=== PATIENT | female | born 1970 | race Caucasian/White ===

== ENCOUNTER 2021-09-21 09:31 | Day surgery (SDC) | payer OTHER ==
[2021-09-21] MEDS ORDERED: Ringers Lactate 1,000 ML IV ONE (10:42)
[2021-09-21 10:50] LABS: Hematocrit 38.1 % (36.0-45.0); Lymphocytes % 24.1 % (15.3-44.8); MPV 7.2 fL (7.6-11.3); RBC Red Blood Cell Count 4.18 M/uL (3.86-4.86)
[2021-09-21] MEDS ORDERED: propofoL 200 MG/20 ML VIAL IV ONE (11:03)
[2021-09-21] MEDS ORDERED: FENTANYL CITR 100 MCG/2 ML ONE (11:04)
[2021-09-21] MEDS ORDERED: MIDAZOLAM HCL 2 MG/2 ML INJ ONE (11:05)
[2021-09-21] MEDS ORDERED: ONDANSETRON 4 MG/2 ML VIAL ONE (11:05)
[2021-09-21] MEDS ORDERED: LIDOCAINE 1% MPF 2 ML AMPULE ONE (11:05)
--- NOTE | 2021-09-21 11:24 | RAD REPORT ---
EXAM DESCRIPTION: RAD - Chest Pa And Lat (2 Views) - 09/21/2021 10:42 am CLINICAL HISTORY: PREPROCEDURE SCREENING COMPARISON: Portable chest November 2013 TECHNIQUE: Frontal and lateral views of the chest were obtained. FINDINGS: The lungs are clear of a focal mass or consolidation. Interstitial markings are prominent but believed be baseline and matching the 2014 study. No failure or volume overload. Heart size is normal and central vasculature is within normal limits. No pleural effusion or pneu mothorax seen. No acute bony finding noted. No aortic abnormality. No significant change from comp arison study. IMPRESSION: No acute cardiopulmonary process.
[2021-09-21 11:49] LABS: Specific Gravity 1.025 (1.005-1.030)
[2021-09-21] MEDS: CEFAZOLIN SODIUM 1 GM/VIAL ONE ×2 (11:50→12:08)
[2021-09-21] MEDS ORDERED: KETOROLAC 30 MG/ML INJ ONE (12:30)
--- NOTE | 2021-09-21 12:35 | P.BOP ---
Preoperative diagnosis: infected posterior neck subQ mass Postoperative diagnosis: same Primary procedure: Excisional biopsy of infected posterior neck subQ mass 4x4cm Estimated blood loss: <10cc Specimen: mass Findings: mass and pus Anesthesia: General Complications: None Drain(s): Other (/" iodoform) Transferred to: Recovery Room Condition: Good
[2021-09-21 13:06] VITALS: O2SAT 100
[2021-09-21 13:55] VITALS: BP 117/62; TEMP 97.3
--- NOTE | 2021-09-22 18:16 | EKG ---
Test Date: 2021-09-21 Test Time: 09:24:23 Strategy Director: DANIELLE MEASUREMENT RESULTS: Intervals: Rate: 91 TN: 140 QRSD: 88 QT: 368 QTc: 452 [place]: P: 71 TN: 140 QRS: 75 T: 54 INTERPRETIVE STATEMENTS: Normal sinus rhythm RSR' or QR pattern in V1 suggests right ventricular conduction delay Borderline ECG No previous ECG available for comparison Electronically Signed On 09-22-21 18:15:24 CDT by Aureliano Matias
== END 2021-09-21 13:52 | disposition home or self-care (01) ==
LOC: OR 09:31
PROVIDERS: ATTEND Surgery
PROC: 0JB50ZZ Excision of Left Neck Subcutaneous Tissue and Fascia, Open Approach (ICD-10-PCS; principal; 2021-09-21 11:30)
DX: L72.0 Epidermal cyst (principal); Z20.822 Contact with and (suspected) exposure to COVID-19; I10 Essential (primary) hypertension; E78.00 Pure hypercholesterolemia, unspecified; I51.9 Heart disease, unspecified
CPT/HCPCS: 93005; 87070; 85025; 80048; 36415; 87205; 81025; 88304; 87075; 71046; 11424; U0003; J2704; J2250; J3010; J7120; J2405; J0690

== ENCOUNTER 2023-06-26 05:07 | Observation (INO) | payer OTHER, SELFPAY ==
[2023-06-26 05:36] LABS: Hematocrit 41.5 % (36.0-45.0); MCV 91.6 fL (80-100); MPV 7.6 fL (7.6-11.3); Platelets 199 thou/uL (152-406); RBC Red Blood Cell Count 4.53 M/uL (3.86-4.86)
[2023-06-26] MEDS ORDERED: ASPIRIN 81 MG CHEWABLE TABLET ONE ×2 (05:36→05:37)
[2023-06-26 05:47] LABS: Protime INR 1.09
[2023-06-26 06:27] LABS: ALT/SGPT 24 U/L (13-56); Alkaline Phosphatase 63 U/L (45-117); BUN Blood Urea Nitrogen 13 mg/dL (7-18); Bicarbonate 26 mEq/L (21-32); Bilirubin Direct 0.1 mg/dL (0-0.2); Bilirubin Indirect, Calculated 0.7 mg/dL (0.2-0.8); Bilirubin Total 0.8 mg/dL (0.2-1.0); Glomerular Filtration Rate 69 ml/min (=/>90); Glucose Level 106 mg/dL (74-106); NT PRO-BNP 69 pg/mL (<125); Potassium 3.8 mEq/L (3.5-5.1); Sodium Level 138 mEq/L (136-145)
[2023-06-26 06:28] LABS: SARS-CoV-2 Antigen Rapid Res Negative (Negative)
[2023-06-26 06:28] LABS: AST/SGOT 19 U/L (15-37); Magnesium 2.2 mg/dL (1.6-2.4); Troponin High Sensitivity < 3.0 pg/mL (<58.9)
[2023-06-26] MEDS ORDERED: METOPROLOL XL 50 MG TAB PO ONE (07:31)
--- NOTE | 2023-06-26 07:52 | EDPHYS ---
Physician Documentation [facility] Name: Courtney Carreon Age: 53 yrs Sex: Female : 1970 Arrival Date: 06/26/2023 Time: 05:07 Bed 5 Private MD: ED Physician Irvin Kaye HPI: 06/26 05:12 This 53 yrs old Female presents to ER via Unassigned with complaints of Chest sp4 Pain. 06:03 3-year-old female presents with acute onset midsternal stabbing chest pain on awakening sp4 at 4 AM. Patient states pain radiates into the back. Patient denies shortness of breath. Tachycardic on arrival at 110. Denies fever, vomiting, reported associated nausea. 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 - Social history:: Smoking status: Patient denies any tobacco usage or history of. Patient uses alcohol, only on a social basis. Patient/guardian denies using street drugs. - Family history:: not pertinent. ROS: 06:03 Constitutional: Negative for fever, chills, and weight loss, Eyes: Negative for injury, sp4 pain, redness, and discharge, Cardiovascular: Positive for midsternal stabbing chest pain 06:03 All other systems are negative, Exam: 06:03 Constitutional: This is a well developed, well nourished patient who is awake, alert, sp4 and in no acute distress. Head/Face: Normocephalic, atraumatic. Eyes: Pupils equal round and reactive to light, extra-ocular motions intact. Lids and lashes normal. Conjunctiva and sclera are not injected. Cornea within normal limits. Periorbital areas with no swelling, redness, or edema. ENT: Nares patent. No nasal discharge, no septal abnormalities noted. Tympanic membranes are normal and external auditory canals are clear. Oropharynx with no redness, swelling, or masses, exudates, or evidence of obstruction, uvula midline. Mucous membranes moist. Neck: Trachea midline, no thyromegaly or masses palpated, and no cervical lymphadenopathy. Supple, full range of motion without nuchal rigidity, or vertebral point tenderness. Chest/axilla: Normal chest wall appearance and motion. Nontender with no deformity. No lesions are appreciated. Cardiovascular: Regular rate and rhythm with a normal S1 and S2. No gallops, murmurs, or rubs. Normal PMI, no JVD. No pulse deficits. Respiratory: Lungs have equal breath sounds bilaterally, clear to auscultation and percussion. No rales, rhonchi or wheezes noted. No increased work of breathing, no retractions or nasal flaring. Abdomen/GI: Soft, non-tender, with normal bowel sounds. No distension or tympany. No guarding or rebound. No evidence of tenderness throughout. Back: No spinal tenderness. No costovertebral tenderness. There is sacral decubitus ulcer that is covered by the wound VAC. Skin: Warm, dry with normal turgor. Normal color with no rashes, no lesions, and no evidence of cellulitis. MS/ Extremity: Pulses equal, no cyanosis. Neurovascular intact. Full, normal range of motion. Neuro: Awake and alert, GCS 15, oriented to person, place, time, and situation. Cranial nerves II-XII grossly intact. Motor strength 5/5 in all extremities. Sensory grossly intact. Psych: Awake, alert, with orientation to person, place and time. Behavior, mood, and affect are within normal limits 06:03 ECG was reviewed by the Attending Physician. EKG at 0 522 sinus tachycardia at the sp4 rate of 110 otherwise normal Vital Signs: 05:10 BP 167 / 103; Pulse 117; Resp 16; Pulse Ox 100% on R/A; Weight 83.91 kg (R); Height 5 km8 ft. 10 in. (R); Pain 6/10; 06:00 BP 143 / 78; Pulse 76; Resp 16; Pulse Ox 100% on R/A; km8 06:30 BP 149 / 84; Pulse 80; Resp 16; Pulse Ox 100% on R/A; km8 07:36 BP 165 / 91; Pulse 105; Resp 18; Temp 98; Pulse Ox 100% on R/A; mb9 08:10 BP 152 / 79; Pulse 101; Resp 16; Pulse Ox 100% on R/A; mb9 09:16 BP 145 / 66; Pulse 82; Resp 16; Pulse Ox 100% on R/A; mb9 09:53 BP 130 / 71; Pulse 83; Resp 16; Pulse Ox 100% ; mb9 05:10 Body Mass Index 26.54 (83.91 kg, 177.8 cm) km8 05:10 Pain Scale: Adult km8 [place] Coma Score: 05:10 Eye Response: spontaneous(4). Motor Response: obeys commands(6). Verbal Response: km8 oriented(5). Total: 15. MDM: 05:13 Patient medically screened. sp4 07:06 HEART Score: History: Slightly Suspicious (0), ECG: Normal (0), Age: > 45 and < 65 sp4 years (1), Risk Factors: No Risk Factors Known (0), Troponin: < or = 1 x Normal Limit (0). The patient was given aspirin in the Emergency Department. Data reviewed: vital signs, nurses notes, old medical records, lab test result(s), EKG, radiologic studies. Transition of care: After a detail discussion of the patient's case, care is transferred to Irvin Kaye MD. 06/26 05:12 Order name: Basic Metabolic Panel; Complete Time: 07:06/26 05:12 Order name: CBC with Diff; Complete Time: :06/26 05:12 Order name: D-Dimer; Complete Time: 06:06/26 05:12 Order name: LFT's; Complete Time: 07:06/26 05:12 Order name: Magnesium; Complete Time: 07:06/26 05:12 Order name: NT PRO-BNP; Complete Time: 07:06/26 05:12 Order name: PT-INR; Complete Time: :06/26 05:12 Order name: Troponin HS; Complete Time: 07:4 06/26 05:26 Order name: SARS RAPID; Complete Time: 07:06 4 06/26 05:26 Order name: Influenza Screen (a \T\ B); Complete Time: 07:4 06/26 10:01 Order name: T4 Free; Complete Time: 21:02 EDMS 06/26 10:01 Order name: Thyroid Stimulating Hormone; Complete Time: 21:02 EDMS 06/26 10:01 Order name: Basic Metabolic Panel EDMS 06/26 10:01 Order name: Basic Metabolic Panel EDMS 06/26 10:01 Order name: Basic Metabolic Panel EDMS 06/26 10:01 Order name: Basic Metabolic Panel EDMS 06/26 10:01 Order name: Basic Metabolic Panel EDMS 06/26 10:01 Order name: Basic Metabolic Panel EDMS 06/26 10:01 Order name: CBC with Automated Diff EDMS 06/26 10:01 Order name: CBC with Automated Diff EDMS 06/26 10:01 Order name: CBC with Automated Diff EDMS 06/26 10:02 Order name: CBC with Automated Diff EDMS 06/26 10:02 Order name: CBC with Automated Diff EDMS 06/26 10:02 Order name: CBC with Automated Diff EDMS 06/26 10:02 Order name: Lipid Profile EDMS 06/26 10:02 Order name: Lipid Profile; Complete Time: 21:02 EDMS 06/26 10:02 Order name: Magnesium EDMS 06/26 10:02 Order name: Magnesium EDMS 06/26 10:02 Order name: Magnesium EDMS 06/26 10:02 Order name: Magnesium EDMS 06/26 10:02 Order name: Magnesium EDMS 06/26 10:02 Order name: Magnesium EDMS 06/26 10:02 Order name: Phosphorus EDMS 06/26 10:02 Order name: Phosphorus EDMS 06/26 10:02 Order name: Phosphorus EDMS 06/26 10:02 Order name: Phosphorus EDMS 06/26 10:02 Order name: Phosphorus EDMS 06/26 10:02 Order name: Phosphorus EDMS 06/26 10:02 Order name: Troponin High Sensitivity EDMS 06/26 10:02 Order name: Troponin High Sensitivity; Complete Time: 21:02 EDMS 06/26 10:02 Order name: Troponin High Sensitivity EDMS 06/26 10:02 Order name: Troponin High Sensitivity; Complete Time: 21:02 EDMS 06/26 05:12 Order name: XRAY Chest (1 view) sp4 06/26 07:28 Order name: CT Aorta for Dissection; Complete Time: 21:02 sam 06/26 10:01 Order name: Echo with Doppler EDMS 06/26 05:12 Order name: EKG; Complete Time: 05:13 sp4 06/26 10:01 Order name: CONS Physician Consult EDAR 06/26 10:01 Order name: EKG Electrocardiogram EDAR 06/26 10:01 Order name: EKG Electrocardiogram EDAR 06/26 05:12 Order name: Cardiac monitoring; Complete Time: 05: sp4 06/26 05:12 Order name: EKG - Nurse/Tech; Complete Time: sp4 06/26 05:12 Order name: IV Saline Lock; Complete Time: : sp4 06/26 05:12 Order name: Labs collected and sent; Complete Time: : sp4 06/26 05:12 Order name: O2 Per Protocol; Complete Time: sp4 06/26 05:12 Order name: O2 Sat Monitoring; Complete Time: : sp4 EC:03 Rate is 110 beats/min. Rhythm is regular, Sinus tachycardia. QRS [place] is Normal. NC sp4 interval is normal. QRS interval is normal. QT interval is normal. No Q waves. T waves are Normal. Clinical impression: No evidence of ischemia. Interpreted by me. Reviewed by me. Administered Medications: 05:57 Drug: Aspirin PO Chewable Tablet 324 mg PO once; 81 mg tablets x 4 Route: PO; km8 06:29 Follow up: Response: No adverse reaction km8 07:36 Drug: Metoprolol PO 50 mg PO once Route: PO; mb9 07:52 Follow up: Response: No adverse reaction mb9 08:38 Drug: Enoxaparin Sub-Q 1 mg/kg Sub-Q once; give if ct dissection negative Route: Sub-Q; mb9 Site: left lower abdomen; 09:24 Follow up: Response: No adverse reaction mb9 08:38 Drug: Norvasc PO 5 mg PO once Route: PO; mb9 09:24 Follow up: Response: No adverse reaction mb9 Disposition Summary: 06/26/23 07:52 Hospitalization Ordered Notes: Hospitalization Status: Observation sam Provider: Casey Christianson cha Location: Telemetry/MedSurg (observation) sam Condition: Stable sam Problem: new sam Symptoms: have improved sam Bed/Room Type: Standard sam Room Assignment: 232(06/26/23 10:47) mb9 Diagnosis - Chest pain, unspecified sam - Essential (primary) hypertension sam Forms: - Medication Reconciliation Form sam - SBAR form sam - Leadership Thank You Letter sam Signatures: Dispatcher [employer] Irvin Garcia MD MD cha Botello, Elizabeth eb Breneman, Donna Messina RN RN mb9 Jlaen Perrin MD MD sp4 Supriya Phipps RN RN km8 Corrections: (The following items were deleted from the chart) 10:24 07:52 sam dean 10:47 10:24 [facility] [place] jermaine mb9
--- NOTE | 2023-06-26 07:52 | ER ---
Nurse's Notes [facility] Name: Courtney Carreon Age: 53 yrs Sex: Female : 1970 Arrival Date: 06/26/2023 Time: 05:07 Bed 5 Private MD: Diagnosis: Chest pain, unspecified;Essential (primary) hypertension Presentation: 06/26 05:10 Chief complaint: Patient states: CP that woke her up at 0400 today with nausea; pt km8 reports intermittent CP for the last week; denies SOB; CP radiates to left arm. Coronavirus screen: Client denies travel out of the [place] in the last 14 days. Ebola Screen: No symptoms or risks identified at this time. Initial Sepsis Screen: Does the patient meet any 2 criteria? HR > 90 bpm. No. Patient's initial sepsis screen is negative. Does the patient have a suspected source of infection? No. Patient's initial sepsis screen is negative. Risk Assessment: Do you want to hurt yourself or someone else? Patient reports no desire to harm self or others. Onset of symptoms was June 26, 2023 at 04:00. 05:10 Method Of Arrival: Ambulatory km8 05:10 Acuity: LES 2 km8 Triage Assessment: 05:10 General: Appears in no apparent distress. Behavior is cooperative, appropriate for age, km8 anxious. Pain: Complains of pain in anterior aspect of left upper chest Pain radiates to left arm Pain currently is 6 out of 10 on a pain scale. Quality of pain is described as tingling, "tightness". EENT: No signs and/or symptoms were reported regarding the EENT system. Neuro: Level of Consciousness is awake, alert, obeys commands, Oriented to person, place, time, situation. Cardiovascular: Reports chest pain, nausea, Denies shortness of breath, Capillary refill < 3 seconds Patient's skin is warm and dry. Rhythm is sinus tachycardia Chest pain is described as Pain is 6 out of 10 on a pain scale. quality is tingling and tightness is located in left anterior chest wall radiates to left arm(s) began suddenly. Respiratory: Airway is patent Respiratory effort is even, unlabored, Respiratory pattern is regular, symmetrical, Denies shortness of breath. GI: No signs and/or symptoms were reported involving the gastrointestinal system. : No signs and/or symptoms were reported regarding the genitourinary system. Derm: No signs and/or symptoms reported regarding the dermatologic system. Skin is intact, is healthy with good turgor, Skin is dry, Skin is pink, warm \\T\\ dry. normal, Skin temperature is warm. Musculoskeletal: No signs and/or symptoms reported regarding the musculoskeletal system. Circulation, motion, and sensation intact. Range of motion: intact in all extremities. 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 - Social history:: Smoking status: Patient denies any tobacco usage or history of. Patient uses alcohol, only on a social basis. Patient/guardian denies using street drugs. - Family history:: not pertinent. Screenin:[address] [facility] ED Fall Risk Assessment (Adult) History of falling in the last 3 months, km8 including since admission No falls in past 3 months (0 pts) Confusion or Disorientation No (0 pts) Intoxicated or Sedated No (0 pts) Impaired Gait No (0 pts) Mobility Assist Device Used No (0 pt) Altered Elimination No (0 pt) Score/Fall Risk Level 0 - 2 = Low Risk Oriented to surroundings, Maintained a safe environment, Educated pt \\T\\ family on fall prevention, incl call for assistance when getting out of bed, Assessed \\T\\ reinforced patient's understanding of fall precautions. Abuse screen: Denies threats or abuse. Denies injuries from another. Nutritional screening: No deficits noted. Tuberculosis screening: No symptoms or risk factors identified. Assessment: 05:10 General: see triage notes/assessment. [facility] 06:13 Reassessment: Patient appears in no apparent distress at this time. No changes from 8 previously documented assessment. Patient and/or family updated on plan of care and expected duration. Pain level reassessed. Patient is alert, oriented x 3, equal unlabored respirations, skin warm/dry/pink. 07:53 Reassessment: No changes from previously documented assessment. Patient and/or family mb9 updated on plan of care and expected duration. Pain level reassessed. Patient is alert, oriented x 3, equal unlabored respirations, skin warm/dry/pink. 09:54 Reassessment: No changes from previously documented assessment. Patient and/or family mb9 updated on plan of care and expected duration. Pain level reassessed. Patient is alert, oriented x 3, equal unlabored respirations, skin warm/dry/pink. 10:32 Reassessment: Attempted to call report to admitting nurse, states she will call back mb9 within 10-15 minutes. Vital Signs: 05:10 BP 167 / 103; Pulse 117; Resp 16; Pulse Ox 100% on R/A; Weight 83.91 kg (R); Height 5 km8 ft. 10 in. (R); Pain 6/10; 06:00 BP 143 / 78; Pulse 76; Resp 16; Pulse Ox 100% on R/A; km8 06:30 BP 149 / 84; Pulse 80; Resp 16; Pulse Ox 100% on R/A; km8 07:36 BP 165 / 91; Pulse 105; Resp 18; Temp 98; Pulse Ox 100% on R/A; mb9 08:10 BP 152 / 79; Pulse 101; Resp 16; Pulse Ox 100% on R/A; mb9 09:16 BP 145 / 66; Pulse 82; Resp 16; Pulse Ox 100% on R/A; mb9 09:53 BP 130 / 71; Pulse 83; Resp 16; Pulse Ox 100% ; mb9 05:10 Body Mass Index 26.54 (83.91 kg, 177.8 cm) km8 05:10 Pain Scale: Adult km8 [place] Coma Score: 05:10 Eye Response: spontaneous(4). Motor Response: obeys commands(6). Verbal Response: km8 oriented(5). Total: 15. ED Course: 05:10 No provider procedures requiring assistance completed. Patient maintains SpO2 km8 saturation greater than 95% on room air. 05:10 Arm band placed on right wrist. km8 05:10 Patient has correct armband on for positive identification. Placed in gown. Bed in low km8 position. Call light in reach. Side rails up X2. Client placed on continuous cardiac and pulse oximetry monitoring. NIBP monitoring applied. Door closed. Lights dimmed. Warm blanket given. 05:11 Patient arrived in ED. gm2 05:12 Jalen Perrin MD is Attending Physician. sp4 05:25 Inserted saline lock: 20 gauge in right antecubital area, using aseptic technique. mc5 Blood collected. 05:28 Triage completed. km8 05:32 Supriya Phipps RN is Primary Nurse. km8 05:58 XRAY Chest (1 view) In Process Unspecified. EDMS 07:15 Attending Physician role handed off by Jalen Perrin MD sam 07:15 Irvin Kaye MD is Attending Physician. sam 07:51 Casey Christianson is Hospitalizing Provider. sam 07:53 Patient admitted, IV remains in place. mb9 08:01 CT Aorta for Dissection In Process Unspecified. EDMS 10:32 Repeat lab(s) drawn. by wi, sent to lab. mb4 Administered Medications: 05:57 Drug: Aspirin PO Chewable Tablet 324 mg PO once; 81 mg tablets x 4 Route: PO; km8 06:29 Follow up: Response: No adverse reaction km8 07:36 Drug: Metoprolol PO 50 mg PO once Route: PO; mb9 07:52 Follow up: Response: No adverse reaction mb9 08:38 Drug: Enoxaparin Sub-Q 1 mg/kg Sub-Q once; give if ct dissection negative Route: Sub-Q; mb9 Site: left lower abdomen; 09:24 Follow up: Response: No adverse reaction mb9 08:38 Drug: Norvasc PO 5 mg PO once Route: PO; mb9 09:24 Follow up: Response: No adverse reaction mb9 Medication: 05:10 VIS not applicable for this client. km8 Outcome: 07:52 Decision to Hospitalize by Provider. sam 10:48 Admitted to Tele accompanied by [facility], via wheelchair, room 232, with chart, Report elmer called to MICHELLE Sagastume 10:48 Condition: stable 10:48 Instructed on the need for admit, 10:55 Patient left the ED. elmer Signatures: Dispatcher [employer] EDMS Irvin Kaye MD MD cha Baxter, Mackenzie mb4 Donna Flores RN RN mbJalen Leiva MD MD 4 Laurie Gifford 5 Melodie Wick gm2 Supriya Phipps RN RN km8 Corrections: (The following items were deleted from the chart) 07:53 07:36 BP 165 / 91; Pulse 105bpm; Resp 18bpm; Pulse Ox 100% RA; mb9 mb9
--- NOTE | 2023-06-26 08:19 | RAD REPORT ---
EXAM DESCRIPTION: CT - Angio Aorta For Dissection - 06/26/2023 8:00 am CLINICAL HISTORY: . Chest and abd pain COMPARISON: CT abdomen 2021 TECHNIQUE: Computed tomography angiography of the chest, abdomen pelvis were obtained. 100 cc Isovue 370 was administered intravenously. Coronal and sagittal reconstruction were performed. MIP 3D reconstruction was performed All CT scans are performed using dose optimization technique as appropriate and may include automated exposure control or mA/KV adjustment according to patient size. FINDINGS: The opacification of the aorta is mildly suboptimal. No gross aortic dissection noted. No aortic aneurysm. Mild plaque is present within the arteries. Iliac arteries unremarkable periods The celiac, SMA and JOSH are patent . A lung consolidation is not present. A pericardial effusion is not seen. A pleural effusion is not no michaela. The liver,spleen, pancreas,adrenals and left kidney demonstrate no significant abnormality. [address] nonobstructing left renal calculus There is no evidence diverticulitis. No adnexal mass. Small umbilical hernia IMPRESSION: No gross evidence of an aortic dissection
[2023-06-26] MEDS ORDERED: ENOXAPARIN 80 MG/0.8 ML SQ ONE (08:23)
[2023-06-26] MEDS ORDERED: AMLODIPINE 5 MG TAB ONE (08:28)
[2023-06-26] MEDS ORDERED: NITROGLYCERIN 0.4 MG/TAB SL PRN (09:49)
[2023-06-26] MEDS ORDERED: MORPHINE 4 MG/ML SYR IV PRN (09:49)
[2023-06-26] MEDS ORDERED: ACETAMINOPHEN 500 MG TAB PO PRN (09:49)
[2023-06-26] MEDS ORDERED: ONDANSETRON 4 MG/2 ML VIAL IV PRN (09:49)
--- NOTE | 2023-06-26 10:09 | P.HP ---
Certification for Inpatient Patient admitted to: Observation With expected LOS: >2 Midnights Patient will require the following post-hospital care: None Practitioner: I am a practitioner with admitting privileges, knowledge of patient current condition, hospital course, and medical plan of care. Services: Services provided to patient in accordance with Admission requirements found in Title 42 Section 412.3 of the Code of Federal Regulations Patient History Date of Service: 06/27/23 Reason for admission: Chest pain r/o ACS History of Present Illness: Courtney Carreon is a 53-year-old female with past medical history of a kidney stone, stress anxiety, and COVID who presents to the ED complaining of chest pain radiating to left arm pain and back associated with nausea that started at 4 AM this morning. Courtney reports previous episodes of chest pain in the past, most recently last week associated with feeling faint. She presented to the ED hypertensive, she states she has not been treated for hypertension in the past and cannot remember an elevated blood pressure that worried her doctor. Initial blood pressure 167/103, heart rate 110, respirations 16, pulse ox 100% on room air. On examination she currently does not have chest pain, no acute distress, alert and oriented x 3. Laboratory evaluation WBC 5.2, H/H 14/41, Platelets 199, Na 138, K 3.8, BUN/Creatinine 13/0.99, GFR 69, serum glucose 106, troponin < 3.0, D dimer 204. Of note, She believes her director of employer services is Dr. Montez who did a stress test on her in January which was negative. EKG reports " Rate 110 beats/miin, Rhythm is regular, sinus tachycardia. QRS axis is normal. AR interval is normal. QRS interval is normal. QT interval is normal. no Qwaves. T waves are Normal. clinical impression: No evidence os ischemia." CTA chest reports "no gross evidence of an aortic dissection" Courtney will be admitted to hospitalist service for futher evaluation and treatment of Chest pain r/o ACS. Allergies No Known Drug Allergies Allergy (Verified 09/21/21 10:03) Unknown Home Medications: NK [No Home Meds] 06/26/23 - Past Medical/Surgical History Has patient received pneumonia vaccine in the past: Yes Diabetic: No -: COVID -: Stress anxiety -: Kidney stone Past Surgical History: Reviewed- Non-Contributory - Family History Grandfather -: Heart disease, Other (see notes) Notes: Fatal [place] in his early 60s Mother -: Cancer (breast cancer) - Social History Smoking Status: Never smoker Alcohol use: No Review of Systems Cardiovascular: Chest Pain, Light Headedness Gastrointestinal: Nausea Musculoskeletal: Arm Pain (left), Back Pain Physical Examination - Physical Exam General: Alert, In no apparent distress, Oriented x3 HEENT: Atraumatic, Normocephalic, PERRLA Neck: Supple, 2+ carotid pulse no bruit, JVD not distended Respiratory: Clear to auscultation bilaterally, Normal air movement Cardiovascular: No edema, Normal pulses, Regular rate/rhythm, Normal S1 S2 Capillary refill: <2 Seconds Gastrointestinal: Normal bowel sounds, Soft and benign Musculoskeletal: No clubbing, No swelling, No contractures Integumentary: No rashes, No breakdown, No significant lesion Neurological: Normal speech, Normal strength at 5/5 x4 extr, Normal tone - Studies Laboratory Data (last 24 hrs) 06/26/23 06/26/23 06/26/23 05:23 05:23 05:23 WBC 5.20 Hgb 14.5 Hct 41.5 Plt Count 199 PT 12.0 INR 1.09 Sodium 138 Potassium 3.8 BUN 13 Creatinine 0.99 Glucose 106 Magnesium 2.2 Total Bilirubin 0.8 AST 19 ALT 24 Alkaline Phosphatase 63 Microbiology Data (last 24 hrs): 06/26/23 05:45 Nasopharnyx Influenza Type A Antigen Screen - Final 06/26/23 05:45 Nasopharnyx Influenza Type B Antigen Screen - Final Assessment and Plan - Plan Assessment and plan Chest pain rule out ACS Hypertensive disorder Tachycardia Initial BP 167/103, HR 110 amlodipine. metoprolol, ASA, lovenox given in the ED, continue with metoprolol 50 mg Aspirin, statin, nitroglycerin SL Echo ordered for Tuesday Initial EKG sinus tachycardia Serial EKG results pending Troponin <3.0/4.0/3.7, d-dimer 240 Trigyceride 84, Cholesterol 189, LDL 118, HDL 54 TSH 1.430,free T4 1.08 History of stress anxiety Supportive care DVT PPx Lovenox Full code LOS 2 days Discharge Plan: Home Plan to discharge in: 48 Hours - Advance Directives Does patient have a Living Will: No Does patient have a Durable POA for Healthcare: No Time Spent Managing Pts Care (In Minutes): 50
[2023-06-26] MEDS ORDERED: METOPROLOL TARTRATE 5 MG/5 ML INJ IV PRN (10:23)
[2023-06-26 11:24] VITALS: O2SAT 100
[2023-06-26 11:29] LABS: Thyroid Stimulating Hormone 1.43 uIU/mL (0.358-3.740)
[2023-06-26 14:45] VITALS: BMI 26.5
[2023-06-26] MEDS ORDERED: INFLUENZA VACCINE (for 6+ mo) 0.5 ML DOSE IMVAC ONE (15:00)
[2023-06-27 03:59] LABS: Absolute Lymphocytes (CBC) 1.7 K/uL (0.7-4.9); Hematocrit 38.8 % (36.0-45.0); Lymphocytes % 28.7 % (15.3-44.8); MPV 7.9 fL (7.6-11.3); Platelets 193 thou/uL (152-406); RBC Red Blood Cell Count 4.26 M/uL (3.86-4.86)
[2023-06-27 04:33] LABS: Magnesium 2.2 mg/dL (1.6-2.4); Phosphorus 3.8 mg/dL (2.5-4.9); Potassium 4.3 mEq/L (3.5-5.1)
[2023-06-27 07:16] VITALS: BP 134/70; TEMP 97.3
[2023-06-27] MEDS ORDERED: METOPROLOL TAR 50 MG TAB PO SCH (09:00)
[2023-06-27] MEDS ORDERED: ENOXAPARIN 40 MG/0.4 ML SQ SCH (09:00)
[2023-06-27] MEDS ORDERED: ASPIRIN EC 81 MG TAB PO SCH (09:00)
--- NOTE | 2023-06-27 09:58 | RAD REPORT ---
EXAM DESCRIPTION: RAD - Chest Single View - 06/26/2023 5:57 am CLINICAL HISTORY: The patient is 53 years old and is Female; CHEST PAIN TECHNIQUE: Single view of the chest. COMPARISON: No relevant prior studies available. FINDINGS: Lungs: No pulmonary vascular congestion or consolidation. Pleural space: Unremarkable. No pneumothorax. Heart: Unremarkable. No cardiomegaly. Mediastinum: Unremarkable. Bones/joints: No acute fracture. Upper abdomen: No free air in the visualized upper abdomen. IMPRESSION: No acute cardiopulmonary process identified. Electronically signed by: Rochelle Stuart MD 06/26/2023 06:08 AM DECORATING INSPECTOR Due to temporary technical issues with the PACS/Fluency reporting system, reports are being signed by the in house radiologists without review as a courtesy to insure prompt reporting. The interpreting radiologist is fully responsible for the content of the report.
--- NOTE | 2023-06-27 13:31 | ECHO ---
HEIGHT: 5 ft 10 in WEIGHT: 185 lb 0 oz DATE OF STUDY: 06/27/[address]: Krystal Moore NP 2-DIMENSIONAL: YES M.MODE: YES DOPPLER: YES COLOR FLOW: YES TDS: PARASTERNALS PORTABLE: YES DEFINITY: BUBBLE STUDY: DIAGNOSIS: CHEST PAIN CARDIAC HISTORY: CATHERIZATION: SURGERY: PROSTHETIC VALVE: PACEMAKER: MEASUREMENTS (cm) DIASTOLIC (NORMALS) SYSTOLIC (NORMALS) IVSd 0.9 (0.6-1.2) LA Diam 3.0 (1.9-4.0) LVEF 66% LVIDd 3.9 (3.5-5.7) LVIDs 2.5 (2.0-3.5) %FS 36% LVPWd 1.0 (0.6-1.2) Ao Diam 2.7 (2.0-3.7) 2 DIMENSIONAL ASSESSMENT: RIGHT ATRIUM: NORMAL LEFT ATRIUM: NORMAL RIGHT VENTRICLE: NORMAL LEFT VENTRICLE: NORMAL TRICUSPID VALVE: MILD TRICUSPID REGURGITATION MITRAL VALVE: NORMAL PULMONIC VALVE: NORMAL AORTIC VALVE: NORMAL PERICARDIAL EFFUSION: NONE AORTIC ROOT: NORMAL LEFT VENTRICULAR WALL MOTION: NORMAL DOPPLER/COLOR FLOW: MILD TRICUSPID REGURGITATION COMMENTS: 1. NORMAL LEFT VENTRICULAR EJECTION FRACTION 60-65% WITH NORMAL WALL MOTION 2. NORMAL DIASTOLIC FUNCTION 3. MILD TRICUSPID REGURGITATION TECHNOLOGIST: ALEXANDRIA DERAS
--- NOTE | 2023-06-27 17:00 | EKG ---
Test Date: 2023-06-26 Test Time: 05:22:06 Rubber Mixer: FLORY MEASUREMENT RESULTS: Intervals: Rate: 110 AK: 180 QRSD: 90 QT: 340 QTc: 460 [place]: P: 63 AK: 180 QRS: 81 T: 56 INTERPRETIVE STATEMENTS: Sinus tachycardia Otherwise normal ECG Compared to ECG 09/21/2021 09:24:23 Sinus rhythm no longer present Electronically Signed On 06-27-23 16:56:28 DIRECTOR OF PREMIUM SEAT SALES by Martin Montez
--- NOTE | 2023-06-27 17:35 | CON ---
Date of Consultation: 06/27/2023 Reason For Consultation: Chest pain. History Of Present Illness: 53-year-old female, no past medical history, saw her in the office [facility] in February. She had a stress test that was negative. Presented with chest pain, sharp, left-s ided, not related to exertion and lasts for short period of time and goes away. No further chest mónica n since admission. Her blood pressure initially was elevated and now it is getting better. Past Medical History: None. Medications: None. Allergies: NO KNOWN DRUG ALLERGIES. Family History: No premature coronary artery disease or cancer. Social History: She does not smoke or drink. Does not use any drugs. Review of Systems: All systems reviewed and they were negative except as mentioned in the HPI. Physical Examination: Vital Signs: Reviewed. Head and Neck: Pupils are equal, reactive to light. Intact eye movements. No JVD. No cervical lym phadenopathy. Neck is supple. Thyroid is not enlarged. Lungs: Clear to auscultation bilaterally. No rhonchi, wheezing, or crackles. No accessory muscle u se. Heart: Regular rate and rhythm. No extra sounds. Abdomen: Soft, nontender. Bowel sounds positive. No organomegaly. No masses or hernia. No rigidi ty or rebound. Extremities: No edema, clubbing, or cyanosis. Intact pulses. Skin: No rash or nodule. Neurologic: Alert, awake, oriented x3. No acute focal deficits appreciated. Investigations: Cardiac enzymes x4 are negative. BUN 18, creatinine 0.86. Assessment And Recommendations: Chest pain, atypical. She had a recent cardiac evaluation in with negative stress test and the pain is not typical. No further intervention is needed. Lalita marx can be released and follow up as an outpatient within a week postdischarge. If she continues to h ave chest pain, then we will plan for coronary angiogram. SR/MODL Voice ID: [id number] Report ID: [id number]
--- NOTE | 2023-06-27 19:23 | P.DS ---
Admission Date: 06/26/23 Discharge Date: 06/27/23 Disposition: ROUTINE DISCHARGE Discharge Condition: GOOD Reason for Admission: Chest pain r/o ACS Brief History of Present Illness: Diagnosis Chest pain rule out ACS Hypertensive disorder Tachycardia HPI 06/26/23 Courtney Carreon is a 53-year-old female with past medical history of a kidney stone, stress anxiety, and COVID who presents to the ED complaining of chest pain radiating to left arm pain and back associated with nausea that started at 4 AM this morning. Courtney reports previous episodes of chest pain in the past, most recently last week associated with feeling faint. She presented to the ED hypertensive, she states she has not been treated for hypertension in the past and cannot remember an elevated blood pressure that worried her doctor. Initial blood pressure 167/103, heart rate 110, respirations 16, pulse ox 100% on room air. On examination she currently does not have chest pain, no acute distress, alert and oriented x 3. Laboratory evaluation WBC 5.2, H/H 14/41, Platelets 199, Na 138, K 3.8, BUN/Creatinine 13/0.99, GFR 69, serum glucose 106, troponin < 3.0, D dimer 204. Of note, She believes her woodwinds teacher is Dr. Montez who did a stress test on her in January which was negative. EKG reports " Rate 110 beats/miin, Rhythm is regular, sinus tachycardia. QRS axis is normal. [place] interval is normal. QRS interval is normal. QT interval is normal. no Qwaves. T waves are Normal. clinical impression: No evidence os ischemia." CTA chest reports "no gross evidence of an aortic dissection" Courtney will be admitted to hospitalist service for futher evaluation and treatment of Chest pain r/o ACS. Hospital Course: Courtney Carreon is a pleasant 53 year old female with a past medical history significant for kidney stone, stress anxiety, and COVID who was admitted to the [facility] on 06/26/23 for Chest pain r/o ACS. Courtney presented to the ED with c/o chest pain that radiated to her left arm and back associated with nausea. She has a history of chestpain and had a full cardiac work up with Dr. Montez. Her troponin trended flat <3.0/4.0/3.7 and d- dimer 240. She was hypertensive and tachycardic on arrival and reports never being put on antihypertensives before. She did report the last few months have been stressful. Today, she is hemodynamically stable with blood pressure much improvement on metoprolol, heart rate stable, she is ambulating independently, tolerating PO diet, and ready for discharge. She will follow up with Dr. Montez for antihypertensive therapy and with a recording of her blood pressures this week. On 06/27/23, Courtney was seen on morning rounds and deemed medically stable for discharge. Courtney was discharged with instructions to schedule follow-up appointments with Dr. Montez. No prescriptions this admission. The patient and family members were given the opportunity to ask questions and reported no further questions. Furthermore, all questions were answered to the best of my ability. A copy of this discharge summary will be sent to the above providers to facilitate continuity of care. Today, I personally spent 50 minutes with Courtney, of which greater than 50% of the time was spent in patient education, counseling, and coordination of care as described above. Physical Exam General: Alert and Oriented x3, In no apparent distress HEENT: Atraumatic, Normocephalic, PERRLA Neck: Supple, 2+ carotid pulse no bruit, JVD not distended Respiratory: Clear to auscultation bilaterally, Normal air movement, symmetrical chest wall movement Cardiovascular: No edema, Normal pulses, Regular rate/rhythm, Normal S1 S2 Capillary refill: <2 Seconds Gastrointestinal: Normal bowel sounds, Soft and benign, nontender Musculoskeletal: No clubbing, No swelling, No contractures, 2+ bilateral peripheral pulses Integumentary: No rashes, No breakdown, No significant lesion Neurological: Normal speech, Normal strength at 5/5 x4 extr, Normal tone Vital Signs/Physical Exam: Temp Pulse Resp BP Pulse Ox 97.3 F 88 18 134/70 98 06/27/23 07:09 06/27/23 08:02 06/27/23 07:09 06/27/23 08:02 06/27/23 07:09 Laboratory Data at Discharge: WBC 5.90 thou/uL (4.3-10.9) 06/27/23 03:07 Hgb 13.8 g/dL (12.0-15.0) 06/27/23 03:07 Hct 38.8 % (36.0-45.0) 06/27/23 03:07 Plt Count 193 thou/uL (152-406) 06/27/23 03:07 PT 12.0 SECONDS (9.5-12.5) 06/26/23 05:23 INR 1.09 06/26/23 05:23 Sodium 139 mEq/L (136-145) 06/27/23 03:07 Potassium 4.3 mEq/L (3.5-5.1) D 06/27/23 03:07 BUN 18 mg/dL (7-18) 06/27/23 03:07 Creatinine 0.86 mg/dL (0.55-1.02) 06/27/23 03:07 Glucose 101 mg/dL (74-106) 06/27/23 03:07 Phosphorus 3.8 mg/dL (2.5-4.9) 06/27/23 03:07 Magnesium 2.2 mg/dL (1.6-2.4) 06/27/23 03:07 Total Bilirubin 0.8 mg/dL (0.2-1.0) 06/26/23 05:23 AST 19 U/L (15-37) 06/26/23 05:23 ALT 24 U/L (13-56) 06/26/23 05:23 Alkaline Phosphatase 63 U/L (45-117) 06/26/23 05:23 Triglycerides 84 mg/dL (<150) 06/26/23 10:31 Cholesterol 189 mg/dL (<200) 06/26/23 10:31 HDL Cholesterol 54 mg/dL (40-60) 06/26/23 10:31 Cholesterol/HDL Ratio 3.50 06/26/23 10:31 Home Medications: NK [No Home Meds] 06/26/23 Physician Discharge Instructions: 1. Please call and schedule a follow-up appointment with your PCP in 3-5 days - Please follow-up with your PCP for medication refills/adjustments 2. Please call and schedule a follow-up appointment with Cardiology, Dr. Montez in one week for outpatient stress test -you will need blood pressure management, and continued management for chest pain 3. all troponins were negative, BNP is unremarkable, serial EKGs are negative, lipid panel in normal range, TSH and free T4 within normal range. 4. Continue heart healthy low sodium diet 5. No activity restriction 6. No new prescriptions this admission. Diet: AHA Activity: Ad [place] Followup: Marciano Butt MD [Primary Care Provider] - (F/U in 3-5 days) Martin Montez MD [ACTIVE - CAN ADMIT] - 1 Week Time spent managing pt's care (in minutes): 50
== END 2023-06-27 10:40 | disposition home or self-care (01) ==
LOC: ER 05:07 → 2ND 10:50
PROVIDERS: ADMIT Internal Medicine; ATTEND Internal Medicine
DX: R07.9 Chest pain, unspecified (principal); F41.9 Anxiety disorder, unspecified; I10 Essential (primary) hypertension; R00.0 Tachycardia, unspecified; N20.0 Calculus of kidney; Z11.52 Encounter for screening for COVID-19
CPT/HCPCS: 36415; 71045; 71275; 74175; 80048; 80061; 80076; 83735; 83880; 84100; 84439; 84443; 84484; 85025; 85379; 85610; 87804; 87811; 93005; 93306; 96372; 99285; G0378; J1650; Q9967

== ENCOUNTER → 2023-07-06 | Emergency (ER) | payer SELFPAY ==
[~2023-07-06] MED LIST: DIAZEPAM 5 MG TABLET ONE
[2023-07-06 06:24] LABS: Absolute Lymphocytes (CBC) 1.5 K/uL (0.7-4.9); Hematocrit 39.6 % (36.0-45.0); Lymphocytes % 33.7 % (15.3-44.8); MCV 91.7 fL (80-100); MPV 7.9 fL (7.6-11.3); Platelets 207 thou/uL (152-406); RBC Red Blood Cell Count 4.32 M/uL (3.86-4.86)
[2023-07-06 06:56] LABS: ALT/SGPT 19 U/L (13-56); AST/SGOT 12 U/L (15-37); Albumin 3.7 g/dL (3.4-5.0); Alkaline Phosphatase 56 U/L (45-117); BUN Blood Urea Nitrogen 14 mg/dL (7-18); Bicarbonate 28 mEq/L (21-32); Bilirubin Direct 0.2 mg/dL (0-0.2); Bilirubin Indirect, Calculated 0.5 mg/dL (0.2-0.8); Bilirubin Total 0.7 mg/dL (0.2-1.0); Glomerular Filtration Rate 77 ml/min (=/>90); Glucose Level 114 mg/dL (74-106); Lipase 19 U/L (13-75); Potassium 4.1 mEq/L (3.5-5.1); Protein, Total 7.1 g/dL (6.4-8.2); Sodium Level 141 mEq/L (136-145)
[2023-07-06 06:57] LABS: Troponin High Sensitivity < 3.0 pg/mL (<58.9)
--- NOTE | 2023-07-06 07:53 | EDPHYS ---
Physician Documentation [facility] Name: Courtney Carreon Age: 53 yrs Sex: Female : 1970 Arrival Date: 07/06/2023 Time: 05:29 Bed 17 Private MD: ED Physician Jalen Perrin HPI: 07/06 05:50 This 53 yrs old Female presents to ER via Unassigned with complaints of chest sp4 pain . 05:57 Cardiac consult from last admission - 06/27/2023 Assessment And Recommendations: Chest sp4 pain, atypical. She had a recent cardiac evaluation in February with negative stress test and the pain is not typical. No further intervention is needed. Patient can be released and follow up as an outpatient within a week postdischarge. If she continues to have chest pain, then we will plan for coronary angiogram.. Historical: - Allergies: 06:17 No Known Allergies; ha1 - PSHx: 06:17 section; ha1 - Immunization history:: Adult Immunizations not up to date. - Social history:: Smoking status: Patient denies any tobacco usage or history of. - Family history:: not pertinent. ROS: 07:40 Constitutional: Negative for fever, chills, and weight loss, Cardiovascular: positive sp4 for sharp , left nonexertional chest pain 07:40 All other systems are negative, Exam: 07:40 Constitutional: This is a well developed, well nourished patient who is awake, alert, sp4 and in no acute distress. Head/Face: Normocephalic, atraumatic. Eyes: Pupils equal round and reactive to light, extra-ocular motions intact. Lids and lashes normal. Conjunctiva and sclera are not injected. Cornea within normal limits. Periorbital areas with no swelling, redness, or edema. ENT: Nares patent. No nasal discharge, no septal abnormalities noted. Tympanic membranes are normal and external auditory canals are clear. Oropharynx with no redness, swelling, or masses, exudates, or evidence of obstruction, uvula midline. Mucous membranes moist. Neck: Trachea midline, no thyromegaly or masses palpated, and no cervical lymphadenopathy. Supple, full range of motion without nuchal rigidity, or vertebral point tenderness. Chest/axilla: Normal chest wall appearance and motion. Nontender with no deformity. No lesions are appreciated. Cardiovascular: Regular rate and rhythm with a normal S1 and S2. No gallops, murmurs, or rubs. Normal PMI, no JVD. No pulse deficits. Respiratory: Lungs have equal breath sounds bilaterally, clear to auscultation and percussion. No rales, rhonchi or wheezes noted. No increased work of breathing, no retractions or nasal flaring. Abdomen/GI: Soft, non-tender, with normal bowel sounds. No distension or tympany. No guarding or rebound. No evidence of tenderness throughout. Back: No spinal tenderness. No costovertebral tenderness. Skin: Warm, dry with normal turgor. Normal color with no rashes, no lesions, and no evidence of cellulitis. MS/ Extremity: Pulses equal, no cyanosis. Neurovascular intact. Full, normal range of motion. Neuro: Awake and alert, GCS 15, oriented to person, place, time, and situation. Cranial nerves II-XII grossly intact. Motor strength 5/5 in all extremities. Sensory grossly intact. Psych: Awake, alert, with orientation to person, place and time. Behavior, mood, and affect are within normal limits 07:40 ECG was reviewed by the Attending Physician. EKG time 0 535 Vital Signs: 05:40 BP 154 / 86; Pulse 117; Resp 17; Temp 97.2(O); Pulse Ox 100% on R/A; Weight 83.46 kg; ha1 Height 5 ft. 10 in. ; 07:40 BP 119 / 59; Pulse 90; Resp 18; Pulse Ox 99% on R/A; ph 05:40 Body Mass Index 26.40 (83.46 kg, 177.8 cm) ha1 MDM: 06:33 Patient medically screened. sp4 07:43 ED course: EXAM: XR Chest, 1 View CLINICAL HISTORY: The patient is 53 years old and is sp4 Female; CHEST PAIN TECHNIQUE: Single view of the chest. COMPARISON: June 26, 2023. FINDINGS: Lungs: No pulmonary vascular congestion or consolidation. Pleural space: Unremarkable. No pneumothorax. Heart: Cardiomediastinal silhouette is not significantly changed given the differences in technique. Mediastinum: See above. Bones/joints: The bones and joints are unchanged as visualized. Upper abdomen: No free air in the visualized upper abdomen. IMPRESSION: No acute cardiopulmonary process identified. . 07:44 ED course: CT review from prior record - EXAM DESCRIPTION: CT - Angio Aorta For sp4 Dissection - 06/26/2023 8:00 am CLINICAL HISTORY: . Chest and abd pain COMPARISON: CT abdomen 2021 TECHNIQUE: Computed tomography angiography of the chest, abdomen pelvis were obtained. 100 cc Isovue 370 was administered intravenously. Coronal and sagittal reconstruction were performed. MIP 3D reconstruction was performed All CT scans are performed using dose optimization technique as appropriate and may include automated exposure control or mA/KV adjustment according to patient size. FINDINGS: The opacification of the aorta is mildly suboptimal. No gross aortic dissection noted. No aortic aneurysm. Mild plaque is present within the arteries. Iliac arteries unremarkable periods The celiac, SMA and JOSH are patent . A lung consolidation is not present. A pericardial effusion is not seen. A pleural effusion is not noted. The liver,spleen, pancreas,adrenals and left kidney demonstrate no significant abnormality. 2 millimeter nonobstructing left renal calculus There is no evidence diverticulitis. No adnexal mass. Small umbilical hernia IMPRESSION: No gross evidence of an aortic dissection. 07/07 00:34 Differential Diagnosis altered mental status, sepsis, flu. Data reviewed: vital signs, sp4 nurses notes, old medical records, lab test result(s), EKG, radiologic studies, plain films. Consideration of Admission/Observation Escalation of care including admission/observation considered. ED course: Patient has history of recent admission and echocardiogram which was normal. Electronic Commerce Specialist thought that patient was noncardiac in nature. Today workup is unremarkable. Patient has signs of anxiety type chest pain, no sign of acute coronary syndrome.. Patient was still advised to see shotblast operator on outpatient basis for outpatient stress test. Was prescribed Valium p.o.. 07/06 05:42 Order name: Basic Metabolic Panel; Complete Time: 07:44 ha1 07/06 05:42 Order name: CBC with Diff; Complete Time: 07:44 ha1 07/06 05:42 Order name: Troponin HS; Complete Time: 07:44 ha07/06 06:20 Order name: Liver (Hepatic) Function; Complete Time: 07:44 EDMS 07/06 06:20 Order name: Lipase; Complete Time: 07:44 EDMS 07/06 05:42 Order name: XRAY Chest (1 view) 07/06 05:42 Order name: EKG; Complete Time: 05:42 07/06 05:42 Order name: Cardiac monitoring; Complete Time: 05:45 07/06 05:42 Order name: EKG - Nurse/Tech; Complete Time: 05:45 07/06 05:42 Order name: IV Saline Lock; Complete Time: 05:45 07/06 05:42 Order name: Labs collected and sent; Complete Time: 05:45 07/06 05:42 Order name: O2 Per Protocol; Complete Time: 05:45 07/06 05:42 Order name: O2 Sat Monitoring; Complete Time: 05:45 ha EC/24 07:40 Rate is 119 beats/min. Rhythm is regular, Sinus tachycardia. QRS [place] is Normal. MA sp4 interval is normal. QRS interval is normal. QT interval is normal. No Q waves. T waves are Normal. No ST changes noted. Clinical impression: No evidence of ischemia. Interpreted by me. Reviewed by me. Administered Medications: 06:12 Drug: Diazepam PO 10 mg PO once Route: PO; jj7 07:30 Follow up: Response: No adverse reaction ph Disposition Summary: 07/06/23 07:52 Discharge Ordered Problem: new sp4 Symptoms: have improved sp4 Condition: Stable sp4 Diagnosis - Anxiety disorder, unspecified sp4 - Cardiac chest pain, acute anxiety attack sp4 Followup: sp4 - With: Private Physician - When: 7 - 10 days - Reason: Recheck today's complaints Followup: sp4 - With: Martin Montez MD - When: 7 - 10 days - Reason: Recheck today's complaints Discharge Instructions: - Discharge Summary Sheet sp4 - Managing Anxiety, Adult sp4 Forms: - Patient Portal Instructions sp4 Prescriptions: - Valium 5 mg Oral tablet - take 1 tablet ORAL route once daily As needed Only as needed for anxiety sp4 attacks; 12 tablet; Refills: 0, Product Selection Permitted Signatures: Dispatcher [employer] EDMS Audrey Mancilla RN RN ha1 Renny Shields RN RN jj7 Jalen Perrin MD MD sp4 Veda Ribeiro RN ph Corrections: (The following items were deleted from the chart) 06:20 06:03 HEPATIC FUNCTION+C.LAB.BRZ ordered. EDMS EDMS 06:20 06:03 LIPASE+C.LAB.BRZ ordered. EDMS EDMS
--- NOTE | 2023-07-06 07:53 | ER ---
Nurse's Notes [facility] Name: Courtney Carreon Age: 53 yrs Sex: Female : 1970 Arrival Date: 07/06/2023 Time: 05:29 Bed 17 Private MD: Diagnosis: Anxiety disorder, unspecified;Cardiac chest pain, acute anxiety attack Presentation: 07/06 05:40 Chief complaint: Patient states: I woke up with sharp intermittent chest pain. onset at ha1 0400 AM. radiates to left arm. 05:40 Coronavirus screen: Vaccine status: Patient reports receiving the 2nd dose of the covid ha1 vaccine. Content Syndicate: [employer]. Ebola Screen: No symptoms or risks identified at this time. Risk Assessment: Do you want to hurt yourself or someone else? Patient reports no desire to harm self or others. Onset of symptoms was July 06, 2023. 05:40 Method Of Arrival: Ambulatory ha1 05:40 Acuity: LES 3 ha1 05:40 Initial Sepsis Screen:. Initial Sepsis Screen: Does the patient meet any 2 criteria? ha1 No. Patient's initial sepsis screen is negative. Does the patient have a suspected source of infection? No. Patient's initial sepsis screen is negative. Historical: - Allergies: 06:17 No Known Allergies; ha1 - PSHx: 06:17 section; ha1 - Immunization history:: Adult Immunizations not up to date. - Social history:: Smoking status: Patient denies any tobacco usage or history of. - Family history:: not pertinent. Screenin:37 [facility] ED Fall Risk Assessment (Adult) History of falling in the last 3 months, jj7 including since admission No falls in past 3 months (0 pts) Confusion or Disorientation No (0 pts) Intoxicated or Sedated No (0 pts) Impaired Gait No (0 pts) Mobility Assist Device Used No (0 pt) Altered Elimination No (0 pt) Score/Fall Risk Level 0 - 2 = Low Risk Oriented to surroundings, Maintained a safe environment, Educated pt \T\ family on fall prevention, incl call for assistance when getting out of bed. Abuse screen: Denies threats or abuse. Nutritional screening: No deficits noted. Tuberculosis screening: No symptoms or risk factors identified. Assessment: 05:37 General: Appears in no apparent distress. comfortable, Behavior is calm, cooperative, jj7 appropriate for age. Pain: Complains of pain in chest. Cardiovascular: Reports chest pain, Capillary refill < 3 seconds Clubbing of nail beds is absent JVD is absent Patient's skin is warm and dry. 07:40 Reassessment: Patient appears in no apparent distress at this time. Patient and/or ph family updated on plan of care and expected duration. Pain level reassessed. Patient is alert, oriented x 3, equal unlabored respirations, skin warm/dry/pink. Vital Signs: 05:40 BP 154 / 86; Pulse 117; Resp 17; Temp 97.2(O); Pulse Ox 100% on R/A; Weight 83.46 kg; ha1 Height 5 ft. 10 in. ; 07:40 BP 119 / 59; Pulse 90; Resp 18; Pulse Ox 99% on R/A; ph 05:40 Body Mass Index 26.40 (83.46 kg, 177.8 cm) ha1 Vitals: 07:40 Cardiac Rhythm Assessment Sinus rhythm. ph ED Course: 05:37 Patient has correct armband on for positive identification. Placed in gown. Bed in low jj7 position. Call light in reach. Adult w/ patient. Warm blanket given. 05:40 Patient arrived in ED. ha1 05:45 Inserted saline lock: 20 gauge in right antecubital area, using aseptic technique. jj7 Blood collected. 05:45 Basic Metabolic Panel Sent. jj7 05:45 CBC with Diff Sent. jj7 05:45 Troponin HS Sent. jj7 05:50 Jalen Perrin MD is Attending Physician. sp4 06:01 XRAY Chest (1 view) In Process Unspecified. EDMS 06:14 Triage completed. ha1 06:14 Basic Metabolic Panel Sent. jj7 06:14 CBC with Diff Sent. jj7 06:14 Troponin HS Sent. jj7 07:34 Veda Ribeiro, MICHELLE is Primary Nurse. ph 07:52 Martin Montez MD is Referral Physician. sp4 Administered Medications: 06:12 Drug: Diazepam PO 10 mg PO once Route: PO; jj7 07:30 Follow up: Response: No adverse reaction ph Medication: 05:37 VIS not applicable for this client. jj7 Outcome: 07:52 Discharge ordered by . sp4 08:27 Patient left the ED. ph Signatures: Dispatcher [employer] EDVeda May RN RN ph Ayala, Heidy, RN RN ha1 Renny Shields RN RN jj7 Potepalov, Sergey, MD MD sp4 Corrections: (The following items were deleted from the chart) 06:16 05:40 Initial Sepsis Screen: Does the patient meet any 2 criteria? No. Patient's ha1 initial sepsis screen is negative. Does the patient have a suspected source of infection? Yes: Other: wound on left leg ha1 06:20 06:14 HEPATIC FUNCTION+C.LAB.BRZ drawn and sent. jj7 EDDE 06:20 06:14 LIPASE+C.LAB.BRZ drawn and sent. [address]
[2023-07-06 10:32] VITALS: BP 119/59; TEMP 97.2; O2SAT 99
--- NOTE | 2023-07-06 12:41 | RAD REPORT ---
EXAM DESCRIPTION: RAD - Chest Single View - 07/06/2023 5:59 am CLINICAL HISTORY: The patient is 53 years old and is Female; CHEST PAIN TECHNIQUE: Single view of the chest. COMPARISON: June 26, 2023. FINDINGS: Lungs: No pulmonary vascular congestion or consolidation. Pleural space: Unremarkable. No pneumothorax. Heart: Cardiomediastinal silhouette is not significantly changed given the differences in techniq ue. Mediastinum: See above. Bones/joints: The bones and joints are unchanged as visualized. Upper abdomen: No free air in the visualized upper abdomen. IMPRESSION: No acute cardiopulmonary process identified. Electronically signed by: Rochelle Stuart MD 07/06/2023 06:13 AM CLOTHES SEPARATOR Due to temporary technical issues with the PACS/Fluency reporting system, reports are being signed by the in house radiologist without review as a courtesy to ensure prompt reporting. The interpreting r adiologist is fully responsible for the content of the report.
== END ==
LOC: ER 05:29
DX: F41.0 Panic disorder [episodic paroxysmal anxiety] (principal); F41.9 Anxiety disorder, unspecified
CPT/HCPCS: 36415; 71045; 80048; 80076; 83690; 84484; 85025; 99283

== ENCOUNTER → 2023-07-20 | Emergency (ER) | payer SELFPAY ==
[~2023-07-20] MED LIST changes: -DIAZEPAM 5 MG TABLET ONE; +LORazepam 2 MG/ML VIAL ONE; +NA CHLORIDE 0.9% 1,000 ML ONE
[2023-07-20 08:55] LABS: Absolute Lymphocytes (CBC) 1.1 K/uL (0.7-4.9); Hematocrit 40.5 % (36.0-45.0); Lymphocytes % 21.9 % (15.3-44.8); MCV 91.1 fL (80-100); MPV 7.8 fL (7.6-11.3); Platelets 218 thou/uL (152-406); RBC Red Blood Cell Count 4.44 M/uL (3.86-4.86)
[2023-07-20 09:06] LABS: BUN Blood Urea Nitrogen 16 mg/dL (7-18); Bicarbonate 28 mEq/L (21-32); Glomerular Filtration Rate 73 ml/min (=/>90); Glucose Level 118 mg/dL (74-106); Potassium 3.8 mEq/L (3.5-5.1); Sodium Level 139 mEq/L (136-145)
[2023-07-20 09:08] LABS: Troponin High Sensitivity < 3.0 pg/mL (<58.9)
--- NOTE | 2023-07-20 09:39 | RAD REPORT ---
EXAM DESCRIPTION: RAD - Chest Single View - 07/20/2023 9:23 am CLINICAL HISTORY: CHEST PAIN COMPARISON: Chest Single View dated 07/06/2023; Chest Single View dated 06/26/2023; Chest Pa And Lat ( 2 Views) dated 09/21/2021; CHEST SINGLE VIEW dated 12/02/2013 FINDINGS: Lines: None. Lungs: No evidence of edema or pneumonia. Pleural: No significant pleural effusions or pneumothorax. Cardiac: The heart size is within normal limits. Mediastinum: Within normal limits. Bones: No acute fractures. Other: None IMPRESSION: No acute cardiopulmonary disease.
--- NOTE | 2023-07-20 11:16 | EDPHYS ---
Physician Documentation [facility] Name: Courtney Carreon Age: 53 yrs Sex: Female : 1970 Arrival Date: 07/20/2023 Time: 08:23 Bed 4 Private MD: ED Physician Deny Soriano HPI: 07/20 08:57 This 53 yrs old Female presents to ER via Ambulatory with complaints of Chest Pain - ms3 Discomfort, Numbness Of Arm, High Blood Pressure. 08:57 53-year-old female with no past medical history presents to the emergency department ms3 for chest pain that began 3 hours prior to arrival. Patient states she began having paresthesias over the left hand and noticed 5/10 left-sided chest discomfort. Patient states she took a buspirone without improvement of her symptoms. Patient notes she has been seen in the emergency department 2 times for this discomfort and admitted 1. Patient states her echo results were normal and she has an appointment with cardiology on the after seeing cardiology in the hospital.. Historical: - Allergies: 08:32 No Known Drug Allergies; ll1 - PSHx: 08:32 section; ll1 - Immunization history:: Adult Immunizations up to date. - Social history:: Smoking status: Patient denies any tobacco usage or history of. ROS: 08:57 Constitutional: Negative for fever, and chills. Neck: Negative for injury, pain, and ms3 swelling, 08:57 Respiratory: Negative for shortness of breath, cough, wheezing, and pleuritic chest pain, Abdomen/GI: Negative for abdominal pain, nausea, vomiting, diarrhea, and constipation, MS/Extremity: Negative for injury and deformity, Skin: Negative for injury, rash, and discoloration, 08:57 Cardiovascular: Positive for chest pain, 08:57 All other systems are negative, Exam: 08:57 Constitutional: This is a well developed, well nourished patient who is awake, alert, ms3 and in no acute distress. Head/Face: Normocephalic, atraumatic. Chest/axilla: Normal chest wall appearance and motion. Nontender with no deformity. Respiratory: Lungs have equal breath sounds bilaterally, clear to auscultation and percussion. No rales, rhonchi or wheezes noted. No increased work of breathing, no retractions or nasal flaring. Abdomen/GI: Soft, non-tender, with normal bowel sounds. No distension or tympany. No guarding or rebound. No evidence of tenderness throughout. Skin: Warm, dry with normal turgor. Normal color with no rashes, no lesions, and no evidence of cellulitis. MS/ Extremity: Pulses equal, no cyanosis. Neurovascular intact. Full, normal range of motion. 08:57 Cardiovascular: Rate: tachycardic, Rhythm: regular, Pulses: no pulse deficits are appreciated, 09:11 ECG was reviewed by the Attending Physician. ms3 Vital Signs: 08:32 BP 181 / 81; Pulse 120; Resp 17; Temp 99.1; Pulse Ox 100% ; Weight 83.01 kg; Height 5 ll1 ft. 10 in. ; Pain 5/10; 09:15 Pulse 92; ms3 09:23 BP 172 / 82; Pulse 107; Resp 16; Pulse Ox 99% ; ko1 10:21 BP 130 / 74; Pulse 91; Resp 16; Pulse Ox 100% ; ko1 08:32 Body Mass Index 26.26 (83.01 kg, 177.8 cm) ll1 08:32 Pain Scale: Adult ll1 MDM: 08:48 Patient medically screened. ms3 09:14 ED course: troponin undetectable at this time. Will obtain second troponin. ms3 09:25 Differential diagnosis: abnormal EKG, acute myocardial infarction, anxiety, chest wall ms3 pain. External Records Reviewed: Inpatient record: Echocardiogram from June 26, 2023 shows normal left ventricular ejection fraction 60 to 65% with normal wall motion, normal diastolic function, mild tricuspid regurgitation. CT angio aorta for dissection on June 26, 2023 shows no gross evidence of aortic dissection. From discharge summary on June 26, 2023 all troponins were negative, BMP was unremarkable, serial EKGs were negative, lipid panel was normal, TSH and free T4 were in normal range.. 11:15 HEART Score: History: Slightly Suspicious (0), ECG: Non specific repolarization ms3 disturbance / LBTB / PM (1), Age: > 45 and < 65 years (1), Risk Factors: No Risk Factors Known (0), Troponin: < or = 1 x Normal Limit (0), Total Score = 2. Data reviewed: vital signs, nurses notes, lab test result(s), EKG, radiologic studies, and as a result, I will discharge patient. Consideration of Admission/Observation Escalation of care including admission/observation considered. HEART score 2. I considered the following discharge prescriptions or medication management in the emergency department Medications were administered in the Emergency Department. See MAR. Independent interpretation of the following test(s) in the Emergency Department EKG: See my EKG interpretation above X-Ray: My interpretation is CXR image reviewed by me does not reveal PNA. Counseling: I had a detailed discussion with the patient and/or guardian regarding the historical points, exam findings, and any diagnostic results supporting the discharge/admit diagnosis, lab results, radiology results, the need for outpatient follow up, to return to the emergency department if symptoms worsen or persist or if there are any questions or concerns that arise at home. Response to treatment: the patient's symptoms have mildly improved after treatment, and as a result, I will discharge patient. Special discussion: Based on the patient's history, exam, and Dx evaluation, there is no indication for emergent intervention or inpatient Tx. It is understood by the patient/guardian that if the Sx's persist or worsen they need to return immediately for re-evaluation. 07/20 08:32 Order name: Basic Metabolic Panel; Complete Time: 09:14 ms3 07/20 08:32 Order name: CBC with Diff; Complete Time: 09:14 ms3 07/20 08:32 Order name: Troponin HS; Complete Time: 09:14 ms3 07/20 09:47 Order name: Troponin High Sensitivity; Complete Time: 10:51 ms3 07/20 08:32 Order name: XRAY Chest (1 view); Complete Time: 09:45 ms3 07/20 08:32 Order name: EKG; Complete Time: 08:32 ms3 07/20 08:32 Order name: Cardiac monitoring; Complete Time: 08:40 ms3 07/20 08:32 Order name: EKG - Nurse/Tech; Complete Time: 08:40 ms3 07/20 08:32 Order name: IV Saline Lock; Complete Time: 08:41 ms3 07/20 08:32 Order name: Labs collected and sent; Complete Time: 08:41 ms3 07/20 08:32 Order name: O2 Per Protocol; Complete Time: 08:41 ms3 07/20 08:32 Order name: O2 Sat Monitoring; Complete Time: 08:41 ms3 EC:11 Rate is 114 beats/min. Rhythm is regular. QRS [place]um[place] is Normal. DC interval is normal. ms3 QRS interval is normal. QT interval is normal. Clinical impression: Sinus tachycardia. Interpreted by me. Reviewed by me. Administered Medications: 08:46 Drug: NS 0.9% IV 1000 ml IV at 1 bolus Per protocol; 1000 mL bolus Route: IV; Rate: 1 jj7 bolus; Site: left antecubital; 10:21 Follow up: Response: No adverse reaction; IV Status: Completed infusion; IV Intake: ko1 1000ml 08:56 Drug: Ativan IVP 0.5 mg IVP once Route: IVP; Site: right antecubital; jj7 10:21 Follow up: Response: No adverse reaction; Anxiety decreased ko1 Disposition Summary: 07/20/23 11:15 Discharge Ordered Notes: Location: Home ms3 Condition: Stable ms3 Diagnosis - Chest pain, unspecified ms3 - Paresthesia of skin ms3 Followup: ms3 - With: Martin Montez MD - When: 2 - 3 days - Reason: Recheck today's complaints Discharge Instructions: - Discharge Summary Sheet ms3 - Nonspecific Chest Pain, Adult ms3 Forms: - Medication Reconciliation Form ms3 - Thank You Letter ms3 - Antibiotic Education ms3 - Prescription Opioid Use ms3 - Patient Portal Instructions ms3 - Leadership Thank You Letter ms3 Signatures: Dispatcher [employer] June Maldonado RN RN ll1 Deny Soriano DO DO ms3 Renny Shields RN RN jj7 Lakia Church RN ko1
--- NOTE | 2023-07-20 11:16 | ER ---
Nurse's Notes [facility] Name: Courtney Carreon Age: 53 yrs Sex: Female : 1970 Arrival Date: 07/20/2023 Time: 08:23 Bed 4 Private MD: Diagnosis: Chest pain, unspecified;Paresthesia of skin Presentation: 07/20 08:32 Chief complaint: Patient states: L arm numbness, high BP, chest discomfort, ll1 palpitations started 3 hours SEARCH LEAD. Coronavirus screen: Client denies travel out of the [place] in the last 14 days. At this time, the client does not indicate any symptoms associated with coronavirus-19. Ebola Screen: Patient denies travel to an Ebola-affected area in the 21 days before illness onset. Initial Sepsis Screen: Does the patient meet any 2 criteria? No. Patient's initial sepsis screen is negative. Does the patient have a suspected source of infection? No. Patient's initial sepsis screen is negative. Risk Assessment: Do you want to hurt yourself or someone else? Patient reports no desire to harm self or others. Onset of symptoms was July 20, 2023. 08:32 Method Of Arrival: Ambulatory ll1 08:32 Acuity: LES 3 ll1 Triage Assessment: 08:34 General: Appears uncomfortable, Behavior is calm, cooperative, appropriate for age. ll1 Pain: Complains of pain in chest Pain currently is 5 out of 10 on a pain scale. Quality of pain is described as pressure. Cardiovascular: Reports chest pain, fatigue, palpitations. Historical: - Allergies: 08:32 No Known Drug Allergies; ll1 - PSHx: 08:32 section; ll1 - Immunization history:: Adult Immunizations up to date. - Social history:: Smoking status: Patient denies any tobacco usage or history of. Screenin:22 [facility] ED Fall Risk Assessment (Adult) History of falling in the last 3 months, ko1 including since admission No falls in past 3 months (0 pts) Confusion or Disorientation No (0 pts) Intoxicated or Sedated No (0 pts) Impaired Gait No (0 pts) Mobility Assist Device Used No (0 pt) Altered Elimination No (0 pt) Score/Fall Risk Level 0 - 2 = Low Risk Oriented to surroundings, Maintained a safe environment, Educated pt \T\ family on fall prevention, incl call for assistance when getting out of bed, Assessed \T\ reinforced patient's understanding of fall precautions, Provided non-skid footwear, Hourly rounding (assess needs \T\ fall precautionary measures) done, Used ambulatory aids as needed (educated on \T\ assisted with), Used gait belt as appropriate. Abuse screen: Denies threats or abuse. Denies injuries from another. Nutritional screening: No deficits noted. Tuberculosis screening: No symptoms or risk factors identified. Assessment: 10:22 General: Appears in no apparent distress. Behavior is cooperative, appropriate for age, ko1 anxious. Pain: Pain does not radiate. Pain began gradually. Cardiovascular: Reports chest pain. Vital Signs: 08:32 BP 181 / 81; Pulse 120; Resp 17; Temp 99.1; Pulse Ox 100% ; Weight 83.01 kg; Height 5 ll1 ft. 10 in. ; Pain 5/10; 09:15 Pulse 92; ms3 09:23 BP 172 / 82; Pulse 107; Resp 16; Pulse Ox 99% ; ko1 10:21 BP 130 / 74; Pulse 91; Resp 16; Pulse Ox 100% ; ko1 08:32 Body Mass Index 26.26 (83.01 kg, 177.8 cm) ll1 08:32 Pain Scale: Adult ll1 ED Course: 08:25 Patient arrived in ED. mg5 08:31 Deny Soriano DO is Attending Physician. ms3 08:32 Arm band placed on Patient placed in an exam room, on a stretcher. ll1 08:33 Triage completed. ll1 08:40 Inserted saline lock: 20 gauge in right antecubital area, using aseptic technique. ko1 Blood collected. Patient maintains SpO2 saturation greater than 95% on room air. 08:41 Renny Shields, RN is Primary Nurse. jj7 08:41 Basic Metabolic Panel Sent. jj7 08:41 CBC with Diff Sent. jj7 08:41 Troponin HS Sent. jj7 09:20 Lakia Church, MICHELLE is Primary Nurse. ko1 09:25 XRAY Chest (1 view) In Process Unspecified. EDMS 10:22 Patient has correct armband on for positive identification. Placed in gown. Bed in low ko1 position. Call light in reach. Side rails up X2. Provided Education on: na. Client placed on continuous cardiac and pulse oximetry monitoring. NIBP monitoring applied. night monitor on. Door closed. Noise minimized. Lights dimmed. Warm blanket given. 10:23 Troponin High Sensitivity Sent. ko1 11:15 Martin Montez MD is Referral Physician. ms3 11:16 No provider procedures requiring assistance completed. IV discontinued, intact, ko1 bleeding controlled, No redness/swelling at site. Pressure dressing applied. Administered Medications: 08:46 Drug: NS 0.9% IV 1000 ml IV at 1 bolus Per protocol; 1000 mL bolus Route: IV; Rate: 1 jj7 bolus; Site: left antecubital; 10:21 Follow up: Response: No adverse reaction; IV Status: Completed infusion; IV Intake: ko1 1000ml 08:56 Drug: Ativan IVP 0.5 mg IVP once Route: IVP; Site: right antecubital; jj7 10:21 Follow up: Response: No adverse reaction; Anxiety decreased ko1 Medication: 11:16 VIS not applicable for this client. ko1 Intake: 10:21 IV: 1000ml; Total: 1000ml. ko1 Outcome: 11:15 Discharge ordered by MD. ms3 11:16 Discharged to home ambulatory, with family, ko1 11:16 Condition: improved 11:16 Discharge instructions given to patient, family, Instructed on discharge instructions, follow up and referral plans. Demonstrated understanding of instructions, follow-up care, 11:21 Patient left the ED. ko1 Signatures: Dispatcher [employer] EDMS June Ford RN RN ll1 Deny Soriano DO DO ms3 Lakia Church RN RN ko1 Renny Shields RN RN jj7 Devora Horn mg5
--- NOTE | 2023-07-21 13:26 | EKG ---
Test Date: 2023-07-20 Test Time: 08:37:21 Terrapin Fisher: ANKUR MEASUREMENT RESULTS: Intervals: Rate: 114 TX: 146 QRSD: 84 QT: 330 QTc: 454 [place]: P: 78 TX: 146 QRS: 85 T: 71 INTERPRETIVE STATEMENTS: Sinus tachycardia Nonspecific ST abnormality Abnormal ECG Compared to ECG 06/26/2023 05:22:06 ST (T wave) deviation now present Electronically Signed On 07-21-23 13:22:37 [employer]ICE PRESIDENT OF CONSULTING SERVICES by Martin Montez
[2023-07-21 20:33] VITALS: BP 130/74; TEMP 99.1; O2SAT 100
== END ==
LOC: ER 08:23
DX: R07.89 Other chest pain (principal); R20.2 Paresthesia of skin
CPT/HCPCS: 36415; 71045; 80048; 84484; 85025; 93005; J7030

== ENCOUNTER → 2023-09-05 | Emergency (ER) | payer SELFPAY ==
[~2023-09-05] MED LIST changes: +ASPIRIN 81 MG CHEWABLE TABLET ONE; -LORazepam 2 MG/ML VIAL ONE; -NA CHLORIDE 0.9% 1,000 ML ONE
[2023-09-05 09:11] LABS: Absolute Lymphocytes (CBC) 1.3 K/uL (0.7-4.9); Absolute Monocytes 0.3 K/uL (0.1-1.3); Absolute Neutrophil 4.1 K/uL (1.8-8.0); Basophils % 0.2 % (0-1.3); Eosinophils % 0.6 % (0-4.4); Hematocrit 40.3 % (36.0-45.0); Hemoglobin 14.1 g/dL (12.0-15.0); Lymphocytes % 21.7 % (15.3-44.8); MCH 32.4 pg (27.0-35.0); MCV 92.6 fL (80-100); MPV 7.5 fL (7.6-11.3); Neutrophils % 71.5 % (41.7-73.7); Nucleated Red Blood Cells % 0.1 % (0-0); Platelets 219 thou/uL (152-406); RBC Red Blood Cell Count 4.35 M/uL (3.86-4.86)
--- NOTE | 2023-09-05 09:11 | RAD REPORT ---
EXAM DESCRIPTION: RAD - Chest Single View - 09/05/2023 9:04 am CLINICAL HISTORY: CHEST PAIN Chest pain. COMPARISON: Chest Single View dated 07/20/2023; Chest Single View dated 07/06/2023; Chest Single View d ated 06/26/2023; Chest Pa And Lat (2 Views) dated 09/21/2021 FINDINGS: Portable technique limits examination quality. The lungs are grossly clear. The heart is normal in size. No displaced fractures. IMPRESSION: No acute intrathoracic process suspected.
[2023-09-05 09:30] LABS: Anion Gap 6.3 mEq/L (5.0-15.0); BUN Blood Urea Nitrogen 15 mg/dL (7-18); Bicarbonate 27 mEq/L (21-32); Glomerular Filtration Rate 72 ml/min (=/>90); Glucose Level 130 mg/dL (74-106); Potassium 3.3 mEq/L (3.5-5.1); Sodium Level 137 mEq/L (136-145); Troponin High Sensitivity < 3.0 pg/mL (<58.9)
--- NOTE | 2023-09-05 11:07 | ER ---
Nurse's Notes [facility] Name: Courtney Carreon Age: 53 yrs Sex: Female : 1970 Arrival Date: 09/05/2023 Time: 08:08 Bed 19 Private MD: Diagnosis: Chest pain, unspecified;Tachycardia, unspecified Presentation: 09/04 08:15 Chief complaint: Patient states: CHEST PAIN STARTED THIS AM WHILE CLEANING PAIN db RADIATES TO LEFT ARM. COMPLAINS OF NAUSEA. Coronavirus screen: Client denies travel out of the [place] in the last 14 days. At this time, the client does not indicate any symptoms associated with coronavirus-19. Ebola Screen: Patient negative for fever greater than or equal to 101.5 degrees Fahrenheit, and additional compatible Ebola Virus Disease symptoms Patient denies exposure to infectious person. Patient denies travel to an Ebola-affected area in the 21 days before illness onset. No symptoms or risks identified at this time. Initial Sepsis Screen: Does the patient meet any 2 criteria? HR > 90 bpm. No. Patient's initial sepsis screen is negative. Does the patient have a suspected source of infection? No. Patient's initial sepsis screen is negative. Risk Assessment: Do you want to hurt yourself or someone else? Patient reports no desire to harm self or others. Onset of symptoms was September 05, 2023. 08:15 Method Of Arrival: Ambulatory db 08:15 Acuity: LES 2 db Triage Assessment: 08:19 General: Appears in no apparent distress. comfortable, Behavior is cooperative, db anxious. Pain: Complains of pain in chest. Neuro: Level of Consciousness is awake, alert, obeys commands, Oriented to person, place, time, situation. Cardiovascular: Reports chest pain, Capillary refill < 3 seconds Patient's skin is warm and dry. MEDICAL DOCTOR MD/MEDICAL DIRECTOR: 08:30 LMP N/A - Post-menopause, Not db Historical: - Allergies: 08:19 No Known Allergies; db - Home Meds: 08:19 metoprolol tartrate 25 mg oral tablet 1 tab once [Active]; buspirone 7.5 mg Oral tablet db 1 tab for generalized anxiety disorder [Active]; - PMHx: 08:19 Hypertensive disorder; Anxiety; db - PSHx: 08:19 section; db - Immunization history:: Adult Immunizations unknown. - Social history:: Smoking status: Patient denies any tobacco usage or history of. Screenin:45 [facility] ED Fall Risk Assessment (Adult) History of falling in the last 3 months, db including since admission No falls in past 3 months (0 pts) Confusion or Disorientation No (0 pts) Intoxicated or Sedated No (0 pts) Impaired Gait No (0 pts) Mobility Assist Device Used No (0 pt) Altered Elimination No (0 pt) Score/Fall Risk Level 0 - 2 = Low Risk Oriented to surroundings, Maintained a safe environment. Abuse screen: Denies threats or abuse. Denies injuries from another. Nutritional screening: No deficits noted. Tuberculosis screening: No symptoms or risk factors identified. Assessment: 08:25 Reassessment: SEE TRIAGE FOR INITIAL ASSESSMENT. db 09:00 Reassessment: Patient appears in no apparent distress at this time. Patient and/or db family updated on plan of care and expected duration. Pain level reassessed. Patient is alert, oriented x 3, equal unlabored respirations, skin warm/dry/pink. General: Appears in no apparent distress. comfortable, Behavior is calm, cooperative. Pain: Complains of pain in chest Pain radiates to left arm Pain began suddenly. Neuro: Level of Consciousness is awake, alert, obeys commands, Oriented to person, place, time, situation. 10:16 Reassessment: Patient appears in no apparent distress at this time. Patient and/or db family updated on plan of care and expected duration. Pain level reassessed. Patient is alert, oriented x 3, equal unlabored respirations, skin warm/dry/pink. General: Appears in no apparent distress. comfortable, Behavior is calm, cooperative. Pain: Denies pain. 11:20 Reassessment: Patient appears in no apparent distress at this time. Patient and/or db family updated on plan of care and expected duration. Pain level reassessed. Patient is alert, oriented x 3, equal unlabored respirations, skin warm/dry/pink. Patient states feeling better. Patient states symptoms have improved. Respiratory: Airway is patent Respiratory effort is even, unlabored, Respiratory pattern is regular, symmetrical. Vital Signs: 08:15 BP 156 / 95; Pulse 129; Resp 20; Temp 98.1(TE); Pulse Ox 97% on R/A; Weight 81.19 kg; db Height 5 ft. 10 in. ; Pain 8/10; 08:30 BP 145 / 80; Pulse 93; Resp 16; Pulse Ox 100% on R/A; db 09:30 BP 130 / 73; Pulse 81; Resp 18; Pulse Ox 99% on R/A; db 10:15 BP 122 / 71; Pulse 77; Resp 16; Pulse Ox 97% on R/A; db 11:00 BP 126 / 70; Pulse 75; Resp 18; Pulse Ox 99% on R/A; db 08:15 Body Mass Index 25.68 (81.19 kg, 177.8 cm) db 08:15 Pain Scale: Adult db ED Course: 08:09 Patient arrived in ED. mg5 08:10 Deny Soriano DO is Attending Physician. ms3 08:17 Jamila Peoples, RN is Primary Nurse. db 08:19 Triage completed. db 08:19 Arm band placed on Patient placed in an exam room. db 08:28 EKG done, by ED staff, reviewed by Deny Soriano DO. db 08:33 Initial lab(s) drawn, by id, sent to lab. Inserted saline lock: 20 gauge in right db antecubital area, using aseptic technique. Blood collected. 08:45 Patient has correct armband on for positive identification. Placed in gown. Bed in low db position. Call light in reach. Side rails up X 1. Provided Education on: LABS . Client placed on continuous cardiac and pulse oximetry monitoring. NIBP monitoring applied. monitoring and evaluation advisor on. Pulse ox on. NIBP on. Warm blanket given. 09:06 XRAY Chest (1 view) In Process Unspecified. EDMS 11:20 No provider procedures requiring assistance completed. IV discontinued, intact, db bleeding controlled, No redness/swelling at site. Patient maintains SpO2 saturation greater than 95% on room air. Administered Medications: 08:37 Drug: Aspirin PO Chewable Tablet 324 mg PO once; 81 mg tablets x 4 Route: PO; db 11:21 Follow up: Response: No adverse reaction db Medication: 11:20 VIS not applicable for this client. db Outcome: 11:07 Discharge ordered by . ms3 11:20 Discharged to home ambulatory, with family, db 11:20 Condition: stable 11:20 Discharge instructions given to patient, Instructed on discharge instructions, follow up and referral plans. 11:22 Patient left the ED. db Signatures: Dispatcher [employer] EDMS Deny Soriano DO DO ms3 Jamila Peoples RN RN Devora Alvarez mg5 Corrections: (The following items were deleted from the chart) 10:16 10:16 Reassessment: Patient appears in no apparent distress at this time. Patient db and/or family updated on plan of care and expected duration. Pain level reassessed. Patient is alert, oriented x 3, equal unlabored respirations, skin warm/dry/pink. db
--- NOTE | 2023-09-05 11:07 | EDPHYS ---
Physician Documentation [facility] Name: Courtney Carreon Age: 53 yrs Sex: Female : 1970 Arrival Date: 09/05/2023 Time: 08:08 Bed 19 Private MD: ED Physician Deny Soriano HPI: 09/04 08:51 This 53 yrs old Female presents to ER via Ambulatory with complaints of Chest Pain. nh3 08:51 53-year-old female with past medical history of hypertension, anxiety presents to the [facility] emergency department for chest pain that began this morning while cleaning house. Patient states the pain radiates down her left arm. The pain is rated an 8/10. Patient took metoprolol at 7 AM. Patient endorses nausea, denies vomiting, shortness of breath, diaphoresis.. TIP BANDER: 08:30 LMP N/A - Post-menopause, Not db Historical: - Allergies: 08:19 No Known Allergies; db - Home Meds: 08:19 metoprolol tartrate 25 mg oral tablet 1 tab once [Active]; buspirone 7.5 mg Oral tablet db 1 tab for generalized anxiety disorder [Active]; - PMHx: 08:19 Hypertensive disorder; Anxiety; db - PSHx: 08:19 section; db - Immunization history:: Adult Immunizations unknown. - Social history:: Smoking status: Patient denies any tobacco usage or history of. ROS: 08:51 Constitutional: Negative for fever, and chills. Neck: Negative for injury, pain, and ms3 swelling, Respiratory: Negative for shortness of breath, cough, wheezing, and pleuritic chest pain, Abdomen/GI: Negative for abdominal pain, nausea, vomiting, diarrhea, and constipation, MS/Extremity: Negative for injury and deformity, 08:51 Cardiovascular: Positive for chest pain, Exam: 08:51 Constitutional: This is a well developed, well nourished patient who is awake, alert, ms3 and in no acute distress. Head/Face: Normocephalic, atraumatic. Chest/axilla: Normal chest wall appearance and motion. Nontender with no deformity. Respiratory: Lungs have equal breath sounds bilaterally, clear to auscultation and percussion. No rales, rhonchi or wheezes noted. No increased work of breathing, no retractions or nasal flaring. Abdomen/GI: Soft, non-tender, with normal bowel sounds. No distension or tympany. No guarding or rebound. No evidence of tenderness throughout. Skin: Warm, dry with normal turgor. Normal color with no rashes, no lesions, and no evidence of cellulitis. MS/ Extremity: Pulses equal, no cyanosis. Neurovascular intact. Full, normal range of motion. 08:51 Cardiovascular: Rate: tachycardic, Rhythm: regular, Pulses: no pulse deficits are appreciated, Heart sounds: normal, normal S1and S2, 10:10 ECG was reviewed by the Attending Physician. ms3 Vital Signs: 08:15 BP 156 / 95; Pulse 129; Resp 20; Temp 98.1(TE); Pulse Ox 97% on R/A; Weight 81.19 kg; db Height 5 ft. 10 in. ; Pain 8/10; 08:30 BP 145 / 80; Pulse 93; Resp 16; Pulse Ox 100% on R/A; db 09:30 BP 130 / 73; Pulse 81; Resp 18; Pulse Ox 99% on R/A; db 10:15 BP 122 / 71; Pulse 77; Resp 16; Pulse Ox 97% on R/A; db 11:00 BP 126 / 70; Pulse 75; Resp 18; Pulse Ox 99% on R/A; db 08:15 Body Mass Index 25.68 (81.19 kg, 177.8 cm) db 08:15 Pain Scale: Adult db MDM: 08:22 Patient medically screened. ms3 08:51 Differential diagnosis: abnormal EKG, acute myocardial infarction, anxiety, coronary ms3 artery disease chest wall pain. The patient was given aspirin in the Emergency Department. 11:07 HEART Score: History: Moderately Suspicious (1), ECG: Normal (0), Age: > 45 and < 65 ms3 years (1), Risk Factors: 1 or 2 risk factors (1), Troponin: < or = 1 x Normal Limit (0), Total Score = 3. Data reviewed: vital signs, nurses notes, lab test result(s), EKG, radiologic studies, and as a result, I will discharge patient. Consideration of Admission/Observation Escalation of care including admission/observation considered. Heart score 3. I considered the following discharge prescriptions or medication management in the emergency department Medications were administered in the Emergency Department. See MAR. Independent interpretation of the following test(s) in the Emergency Department EKG: See my EKG interpretation above. Historians other than the Patient: Spouse/Significant Other: Patient's . Care significantly affected by the following chronic conditions: Hypertension. Counseling: I had a detailed discussion with the patient and/or guardian regarding the historical points, exam findings, and any diagnostic results supporting the discharge/admit diagnosis, lab results, radiology results, the need for outpatient follow up, to return to the emergency department if symptoms worsen or persist or if there are any questions or concerns that arise at home. Special discussion: Based on the patient's history, exam, and Dx evaluation, there is no indication for emergent intervention or inpatient Tx. It is understood by the patient/guardian that if the Sx's persist or worsen they need to return immediately for re-evaluation. ED course: Discussed labs, EKG, chest x-ray with patient and her . Patient to follow-up with primary care physician 2 to 3 days. Patient understands and agrees with plan. All questions were answered. Return precautions discussed include worsening symptoms, or any other concerns. On reevaluation patient is alert and oriented x 4, no apparent distress, nontoxic-appearing, ambulatory in the emergency room, speaking full sentences. Patient heart rate improved to normal rate while in the emergency department. 09/04 08:21 Order name: Basic Metabolic Panel; Complete Time: 09:38 ms3 09/04 08:21 Order name: CBC with Diff; Complete Time: 09:38 ms3 09/04 08:21 Order name: Troponin HS; Complete Time: 09: ms3 09/04 08:21 Order name: D-Dimer; Complete Time: 09:38 ms3 09/04 10:08 Order name: Troponin High Sensitivity 09/04 08:21 Order name: XRAY Chest (1 view); Complete Time: 09:38 ms3 09/04 08:21 Order name: EKG; Complete Time: 08:22 ms3 09/04 08:21 Order name: Cardiac monitoring; Complete Time: 08:40 ms3 09/04 08:21 Order name: EKG - Nurse/Tech; Complete Time: 08:40 ms3 09/04 08:21 Order name: IV Saline Lock; Complete Time: 08:40 ms3 09/04 08:21 Order name: Labs collected and sent; Complete Time: 08:40 ms3 09/04 08:21 Order name: O2 Per Protocol; Complete Time: 08:40 ms3 09/04 08:21 Order name: O2 Sat Monitoring; Complete Time: 08:40 ms3 EC:10 Rate is 107 beats/min. Rhythm is regular. QRS [place] is Normal. MT interval is normal. ms3 QRS interval is normal. Clinical impression: Sinus tachycardia. Interpreted by me. Reviewed by me. Administered Medications: 08:37 Drug: Aspirin PO Chewable Tablet 324 mg PO once; 81 mg tablets x 4 Route: PO; db 11:21 Follow up: Response: No adverse reaction db Disposition Summary: 09/05/23 11:07 Discharge Ordered Notes: Location: Home ms3 Condition: Stable ms3 Diagnosis - Chest pain, unspecified ms3 - Tachycardia, unspecified ms3 Discharge Instructions: - Discharge Summary Sheet ms3 - Nonspecific Chest Pain, Adult ms3 Forms: - Medication Reconciliation Form ms3 - Thank You Letter ms3 - Antibiotic Education ms3 - Prescription Opioid Use ms3 - Patient Portal Instructions ms3 - Leadership Thank You Letter ms3 Signatures: Dispatcher [employer] EDMS Deny Soriano DO DO ms3 Jamila Peoples, RN RN db
[2023-09-05 11:41] VITALS: BP 126/70; TEMP 98.1; O2SAT 99
--- NOTE | 2023-09-06 17:06 | EKG ---
Test Date: 2023-09-05 Test Time: 07:25:49 Track Fitter: FARIHA MEASUREMENT RESULTS: Intervals: Rate: 107 AK: 188 QRSD: 90 QT: 350 QTc: 467 [place]: P: 60 AK: 188 QRS: 79 T: 60 INTERPRETIVE STATEMENTS: Sinus tachycardia Right atrial enlargement Nonspecific ST abnormality Abnormal ECG Compared to ECG 07/20/2023 08:37:21 Atrial abnormality now present ST (T wave) deviation still present Electronically Signed On 09-06-23 17:01:46 CDT by Martin Montez
== END ==
LOC: ER 08:08
DX: R07.9 Chest pain, unspecified (principal); R00.0 Tachycardia, unspecified; I10 Essential (primary) hypertension; F41.9 Anxiety disorder, unspecified
CPT/HCPCS: 36415; 71045; 80048; 84484; 85025; 85379; 93005; 99285

== ENCOUNTER 2025-01-17 02:51 | Emergency (ER) | payer OTHER ==
[2025-01-17] MEDS ORDERED: FAMOTIDINE 20 MG/2 ML VIAL IV ONE (03:00)
[2025-01-17] MEDS ORDERED: METHYLPREDNISOLONE 125 MG INJ ONE (03:00)
[2025-01-17] MEDS ORDERED: DIPHENHYDRAMINE 50 MG/ML VIAL ONE (03:00)
--- NOTE | 2025-01-17 06:30 | EDPHYS ---
Physician Documentation [facility] Name: Courtney Carreon Age: 54 yrs Sex: Female : 1970 Arrival Date: 01/17/2025 Time: 02:51 Bed 5 Private MD: ED Physician Cosmo Brandt HPI: 01/17 03:09 This 54 yrs old Female presents to ER via Unassigned with complaints of Allergic rn Reaction. 03:09 Patient reports started new hormonal therapy 2 days ago and then started feeling facial rn sensation yesterday followed by swelling of upper lip. Today now lower lip is swollen as well. No tongue swelling or difficulty breathing. No difficulty swallowing. Does have itchy rash on arms.. Historical: - PMHx: 03:10 Anxiety; Hypertensive disorder; br2 - PSHx: 03:10 section; br2 - Immunization history:: Adult Immunizations up to date. - Infectious Disease History:: Denies. - Family history:: not pertinent. - Social history:: Smoking status: Patient denies any tobacco usage or history of. Patient/guardian denies using alcohol, street drugs. - Hospitalizations: : No recent hospitalization is reported. ROS: 03:09 Constitutional: Negative for fever, chills, and weight loss, ENT: Positive for lip rn swelling Neck: Negative for injury, pain, and swelling, Cardiovascular: Negative for chest pain, palpitations, and edema, Respiratory: Negative for shortness of breath, cough, wheezing, and pleuritic chest pain, Abdomen/GI: Negative for abdominal pain, nausea, vomiting, diarrhea, and constipation, MS/Extremity: Negative for injury and deformity, Skin: Positive for urticaria Neuro: Negative for headache, weakness, numbness, tingling, and seizure, Exam: 03:09 Constitutional: This is a well developed, well nourished patient who is awake, alert, rn and in no acute distress. Ambulatory to room without assistance or difficulty Head/Face: Normocephalic, atraumatic. ENT: Mild swelling upper and lower lip. No stridor. No tongue swelling. Cardiovascular: Regular rate and rhythm. No pulse deficits. Respiratory: No increased work of breathing, no retractions or nasal flaring. Skin: Some urticaria noted on forearms bilaterally Neuro: Awake and alert, GCS 15 Vital Signs: 03:06 BP 147 / 73; Pulse 86; Resp 18; Temp 97.2(O); Pulse Ox 100% on R/A; Weight 88.45 kg; br2 Height 5 ft. 10 in. ; Pain 0/10; 04:09 BP 122 / 62; Pulse 65; Resp 16 S; Pulse Ox 98% on R/A; lg3 05:14 BP 118 / 68; Pulse 71; Resp 17; Temp 98.2; Pulse Ox 100% ; Pain 0/10; bm8 06:48 BP 124 / 71; Pulse 68; Resp 16 S; Pulse Ox 100% on R/A; Pain 0/10; lg3 03:06 Body Mass Index 27.98 (88.45 kg, 177.8 cm) br2 03:06 Pain Scale: Adult br2 05:14 Pain Scale: Adult bm8 06:48 Pain Scale: Adult lg3 [place] Score: 05:14 Eye Response: spontaneous(4). Motor Response: obeys commands(6). Verbal Response: bm8 oriented(5). Total: 15. MDM: 02:55 Medical Screening Exam initiated rn 04:42 ED course: Patient showing improvement, lower lip has decreased in size.. rn 06:29 Differential diagnosis: angioedema, urticaria, Acute allergic reaction. Data reviewed: rn vital signs, nurses notes, and as a result, I will discharge patient. Counseling: I had a detailed discussion with the patient and/or guardian regarding the historical points, exam findings, and any diagnostic results supporting the discharge/admit diagnosis, the need for outpatient follow up, to return to the emergency department if symptoms worsen or persist or if there are any questions or concerns that arise at home. Response to treatment: the patient's symptoms have markedly improved after treatment, and as a result, I will discharge patient. Special discussion: I discussed with the patient/guardian in detail that at this point there is no indication for admission to the hospital. It is understood, however, that if the symptoms persist or worsen the patient needs to return immediately for re-evaluation. ED course: Patient improved, lips continue to go down and swelling. Recommend holding any new medication that she just started this week and follow-up with her prescribing provider. Return precautions given understood. Will discharge home with 5 days of steroids and [id number] nonsedating allergy medication as needed.. 01/17 03:03 Order name: IV Start; Complete Time: 03:17 rn Administered Medications: 03:19 Drug: MethylPrednisoLONE IVP 125 mg IVP once Route: IVP; Site: right antecubital; lg3 04:10 Follow up: Response: No adverse reaction; Marked relief of symptoms lg3 03:19 Drug: diphenhydrAMINE IVP 25 mg IVP once Route: IVP; Site: right antecubital; lg3 04:10 Follow up: Response: No adverse reaction; Marked relief of symptoms lg3 03:19 Drug: Famotidine IVP 20 mg IVP once; dilute with 10 mL 0.9% NaCl; give over 2 minutes lg3 Route: IVP; Site: right antecubital; 04:10 Follow up: Response: No adverse reaction lg3 06:48 Drug: tranexamic acid IV 1000 mg IV at calculated rate once; IV once over 20 minutes lg3 Route: IV; Rate: calculated rate; Site: right antecubital; 06:55 Follow up: Response: No adverse reaction; IV Status: Completed infusion; IV Intake: [id number] Disposition Summary: 01/17/25 06:30 Discharge Ordered Notes: Location: Home rn Problem: new rn Symptoms: have improved rn Condition: Stable rn Diagnosis - Acute allergic reaction rn Followup: rn - With: Private Physician - When: As needed - Reason: Recheck today's complaints, Re-evaluation by your physician Discharge Instructions: - Discharge Summary Sheet rn Forms: - Medication Reconciliation Form rn - Antibiotic newspaper photojournalist - Prescription Opioid Use rn - Patient Portal Instructions rn - Leadership Thank You Letter rn - Work release form rv1 Prescriptions: - Prednisone 20 mg Oral Tablet - take 3 tablets ORAL route once daily for 5 days; 15 tablet; Refills: 0, Product rn Selection Permitted Signatures: Cosmo Brandt MD MD rn Able, Lacie RN RN lg3 Keeley Mckinley RN RN br2
--- NOTE | 2025-01-17 06:30 | ER ---
Nurse's Notes [facility] Name: Courtney Carreon Age: 54 yrs Sex: Female : 1970 Arrival Date: 01/17/2025 Time: 02:51 Bed 5 Private MD: Diagnosis: Acute allergic reaction Presentation: 01/17 03:06 Chief complaint: Patient states: PT STATES SHE STARTED HORMONE PILLS AND A PATCH ON br2 TUESDAY AND ON TUESDAY AT APPROX 1400 HER UPPER LIP BEGAN TO SWELL THEN HER LOWER LIP. PT DENIES SOB OR TONGUE SWELLING. Coronavirus screen: Client denies travel out of the [place] in the last 14 days. Ebola Screen: Patient denies exposure to infectious person. Onset: The symptoms/episode began/occurred 1 day(s) ago, at 14:00. Anaphylaxis evaluation, angioedema. Initial Sepsis Screen: Does the patient meet any 2 criteria? No. Patient's initial sepsis screen is negative. Does the patient have a suspected source of infection? No. Patient's initial sepsis screen is negative. Risk Assessment: Do you want to hurt yourself or someone else?. Onset of symptoms was January 16, 2025 at 14:00. 03:06 Method Of Arrival: Ambulatory br2 03:06 Acuity: LES 4 br2 Triage Assessment: 03:10 General: Appears in no apparent distress. uncomfortable. Pain: Denies pain. br2 Historical: - PMHx: 03:10 Anxiety; Hypertensive disorder; br2 - PSHx: 03:10 section; br2 - Immunization history:: Adult Immunizations up to date. - Infectious Disease History:: Denies. - Family history:: not pertinent. - Social history:: Smoking status: Patient denies any tobacco usage or history of. Patient/guardian denies using alcohol, street drugs. - Hospitalizations: : No recent hospitalization is reported. Screenin:16 [facility] ED Fall Risk Assessment (Adult) History of falling in the last 3 months, lg3 including since admission No falls in past 3 months (0 pts) Confusion or Disorientation No (0 pts) Intoxicated or Sedated No (0 pts) Impaired Gait No (0 pts) Mobility Assist Device Used No (0 pt) Altered Elimination No (0 pt) Score/Fall Risk Level 0 - 2 = Low Risk Oriented to surroundings, Maintained a safe environment, Educated pt \T\ family on fall prevention, incl call for assistance when getting out of bed, Assessed \T\ reinforced patient's understanding of fall precautions. Abuse screen: Denies threats or abuse. Denies injuries from another. Nutritional screening: No deficits noted. Tuberculosis screening: No symptoms or risk factors identified. Assessment: 03:16 General: Appears in no apparent distress. comfortable, Behavior is calm, cooperative. lg3 Pain: Denies pain. Neuro: No deficits noted. Vasquez Agitation-Sedation Scale (RASS): 0 - Alert and Calm Level of Consciousness is awake, alert, obeys commands, Oriented to person, place, time, situation. Cardiovascular: No deficits noted. Denies chest pain, shortness of breath, Capillary refill < 3 seconds Clubbing of nail beds is absent JVD is absent Patient's skin is warm and dry. Respiratory: No deficits noted. Airway is patent Respiratory effort is even, unlabored, Respiratory pattern is regular, symmetrical, Breath sounds are clear bilaterally. GI: No deficits noted. No signs and/or symptoms were reported involving the gastrointestinal system. : No signs and/or symptoms were reported regarding the genitourinary system. EENT: No deficits noted. Oral mucosa is moist. Derm: No deficits noted. Skin is intact, is healthy with good turgor, Skin is dry, Skin is normal, Skin temperature is warm. Musculoskeletal: Circulation, motion, and sensation intact. Range of motion: intact in all extremities, Swelling present in upper lip and lower lip. 04:10 Reassessment: Patient appears in no apparent distress at this time. No changes from lg3 previously documented assessment. Patient and/or family updated on plan of care and expected duration. Pain level reassessed. Patient is alert, oriented x 3, equal unlabored respirations, skin warm/dry/pink. Patient states feeling better. Patient states symptoms have improved. 05:14 Reassessment: Patient appears in no apparent distress at this time. Patient and/or bm8 family updated on plan of care and expected duration. Pain level reassessed. Patient is alert, oriented x 3, equal unlabored respirations, skin warm/dry/pink. Patient denies pain at this time. Patient states feeling better. Patient states symptoms have improved. 05:14 Reassessment: pt provided po fluids. bm8 06:48 Reassessment: Patient appears in no apparent distress at this time. No changes from lg3 previously documented assessment. Patient and/or family updated on plan of care and expected duration. Pain level reassessed. Patient is alert, oriented x 3, equal unlabored respirations, skin warm/dry/pink. Patient denies pain at this time. Patient states feeling better. Patient states symptoms have improved. Vital Signs: 03:06 BP 147 / 73; Pulse 86; Resp 18; Temp 97.2(O); Pulse Ox 100% on R/A; Weight 88.45 kg; br2 Height 5 ft. 10 in. ; Pain 0/10; 04:09 BP 122 / 62; Pulse 65; Resp 16 S; Pulse Ox 98% on R/A; lg3 05:14 BP 118 / 68; Pulse 71; Resp 17; Temp 98.2; Pulse Ox 100% ; Pain 0/10; bm8 06:48 BP 124 / 71; Pulse 68; Resp 16 S; Pulse Ox 100% on R/A; Pain 0/10; lg3 03:06 Body Mass Index 27.98 (88.45 kg, 177.8 cm) br2 03:06 Pain Scale: Adult br2 05:14 Pain Scale: Adult bm8 06:48 Pain Scale: Adult lg3 Zeinab Coma Score: 05:14 Eye Response: spontaneous(4). Motor Response: obeys commands(6). Verbal Response: bm8 oriented(5). Total: 15. ED Course: 02:55 Patient arrived in ED. gm2 02:55 Cosmo Brandt MD is Attending Physician. rn 03:10 Triage completed. br2 03:10 Arm band placed on left wrist. br2 03:16 Shy Carroll, MICHELLE is Primary Nurse. lg3 03:16 Patient has correct armband on for positive identification. Placed in gown. Bed in low lg3 position. Call light in reach. Side rails up X 1. Client placed on continuous cardiac and pulse oximetry monitoring. NIBP monitoring applied. Door closed. Noise minimized. Warm blanket given. Pillow given. Family accompanied patient. 03:17 Inserted saline lock: 20 gauge in right antecubital area, using aseptic technique. vk Flushed with 10 mL NS. 05:14 Provided Education on: post er care. bm8 05:14 No provider procedures requiring assistance completed. Patient maintains SpO2 bm8 saturation greater than 95% on room air. 06:56 IV discontinued, intact, bleeding controlled, No redness/swelling at site. Pressure lg3 dressing applied. Administered Medications: 03:19 Drug: MethylPrednisoLONE IVP 125 mg IVP once Route: IVP; Site: right antecubital; lg3 04:10 Follow up: Response: No adverse reaction; Marked relief of symptoms lg3 03:19 Drug: diphenhydrAMINE IVP 25 mg IVP once Route: IVP; Site: right antecubital; lg3 04:10 Follow up: Response: No adverse reaction; Marked relief of symptoms lg3 03:19 Drug: Famotidine IVP 20 mg IVP once; dilute with 10 mL 0.9% NaCl; give over 2 minutes lg3 Route: IVP; Site: right antecubital; 04:10 Follow up: Response: No adverse reaction lg3 06:48 Drug: tranexamic acid IV 1000 mg IV at calculated rate once; IV once over 20 minutes lg3 Route: IV; Rate: calculated rate; Site: right antecubital; 06:55 Follow up: Response: No adverse reaction; IV Status: Completed infusion; IV Intake: [id number] Medication: 03:16 VIS not applicable for this client. lg3 Intake: 06:55 IV: 50ml; Total: 50ml. lg3 Outcome: 06:30 Discharge ordered by . rn 06:56 Discharged to home ambulatory, lg3 06:56 Condition: stable 06:56 Discharge instructions given to patient, Instructed on discharge instructions, follow up and referral plans. medication usage, Demonstrated understanding of instructions, follow-up care, medications, Prescriptions given X 1, 06:56 Patient left the ED. lg3 Signatures: Cosmo Brandt MD MD rn Able, Lacie, RN RN lg3 Melodie Wick gm2 Zuleyka Carter Brad, RN RN bm8 Keeley Mckinley RN RN br2
[2025-01-17] MEDS ORDERED: NA CHLORIDE 0.9% 50 ML ONE (06:41)
[2025-01-17] MEDS ORDERED: TRANEXAMIC ACID 1,000 MG/10 ML VIAL IV ONE (06:41)
[2025-01-17 07:12] VITALS: O2SAT 100
[2025-01-17 07:14] VITALS: TEMP 98.2
[2025-01-17 07:16] VITALS: BP 124/71
== END 2025-01-17 06:56 | disposition home or self-care (01) ==
LOC: ER 02:51
DX: R21 Rash and other nonspecific skin eruption (principal); L50.9 Urticaria, unspecified
CPT/HCPCS: 96375; 96374; 99284; J1200; J2919